=== PATIENT | female | born 1965 | race African-American/Black ===

== ENCOUNTER 2018-05-01 11:44 | Outpatient (CLI) | payer MEDICAID ==
--- NOTE | 2018-05-01 13:33 | CT ---
CT CHEST AND ABDOMEN AND PELVIS WITH CONTRAST: Date: 05/01/18 Multiple axial tomograms obtained through chest, abdomen, and pelvis with IV enhancement. Oral contra st was administered. INDICATION: Breast cancer. No prior exams for comparison. FINDINGS: CT CHEST: The lungs are well aerated. No infiltrate or effusion seen. There is a tiny, 5.0 mm, nodule in the ri ght mid lung which is noted along the fissure, best seen on coronal images. The mediastinum appears unremarkable. Review of soft tissues reveals a mass in the right posterolateral breast measuring up to 3.6 cm consi stent with the history of breast cancer. There is right axillary adenopathy. There are lymph nodes in the right axilla measuring over 2.0 cm. There are nonspecific right retropectoral lymph nodes which measure up to 1.0 cm. The osseous structures appear unremarkable. IMPRESSION: 1. Nonspecific 5.0 mm nodule in the right mid lung seen along the fissure, best noted on coronal antione ges. 2. Right breast mass and right axillary adenopathy with adenopathy seen in the retropectoral region on the right. CT ABDOMEN AND PELVIS: Liver, spleen, and pancreas are unremarkable. Adrenal glands normal. Kidneys unremarkable. Small bowel loops unremarkable. Colon unremarkable. Abdominal aorta normal caliber. No adenopathy identified. The uterus is enlarged and very heterogeneous. There are numerous focal areas of low and high attenua tion involving this very large uterus suggesting numerous myometrial fibroids. There are at least two fibroids from the fundus on coronal imaging measuring 5-6 cm diameter. The endometrium appears promi nent and should be sampled. IMPRESSION: 1. Enlarged, heterogeneous uterus, with evidence of numerous large myometrial fibroids. A thickened endometrium is noted. 2. CT abdomen and pelvis otherwise unremarkable. POS: [facility]
== END 2018-05-01 11:45 | disposition home or self-care (01) ==
LOC: SCSCT 11:44
PROVIDERS: ATTEND Internal Medicine Hematology & Oncology
DX: C50.919 Malignant neoplasm of unspecified site of unspecified female breast (principal); R91.1 Solitary pulmonary nodule; D25.9 Leiomyoma of uterus, unspecified; N85.2 Hypertrophy of uterus; R93.8 Abnormal findings on diagnostic imaging of other specified body structures
CPT/HCPCS: 71260; 74177

== ENCOUNTER 2018-05-01 12:04 | Outpatient (CLI) | payer MEDICAID ==
--- NOTE | 2018-05-01 13:59 | RAD ---
2 VIEWS CHEST: Date: 05/01/18 HISTORY: Preoperative chest radiograph. FINDINGS: PA and lateral views of chest obtained. The lungs are well aerated. No evidence of active intrathorac ic disease seen. No evidence of effusions, pneumonia, or pneumothorax seen. IMPRESSION: Normal 2 views chest. POS: [facility]
[2018-05-01 14:01] LABS: #Basophils 0.1 thou/uL (0.0-0.2); #Eosinphils 0.1 thou/uL (0.0-0.7); #Lymphocytes 1.8 thou/uL (1.20-3.40); #Monocytes 0.7 thou/uL (0.11-0.59); #Neutrophils 2.3 thou/uL (1.40-6.50); %Basophils 1.2 % (0.0-1.0); %Eosinophils 1.5 % (0.0-10.0); %Lymphocytes 37.1 % (21.0-51.0); %Monocytes 13.9 % (0.0-10.0); %Neutrophils 46.4 % (42.0-75.0); Hemoglobin 12.3 g/dL (12.0-16.0); Mean Corpuscular Hemoglobin 26.4 pg (27.0-31.0); Mean Platelet Volume 8.9 fL (7.4-10.4); Platelet Count 238 thou/uL (130-400); RBC Distribution Width 16.2 % (11.5-14.5); Red Blood Cell (RBC) Count 4.68 mill/uL (4.20-5.40)
[2018-05-01 14:14] LABS: Anion Gap 12 mmol/L (10-20); BUN (Urea Nitrogen) 11 mg/dL (9.8-20.1); Calc. Creatinine Clearance 0 mL/min (70-130); Calcium 9.2 mg/dL (7.8-10.44); Carbon Dioxide 25 mmol/L (22-29); Chloride 103 mmol/L (98-107); Estimated GFR-MDRD Greater than 90; Glucose 93 mg/dL (70-105); Potassium 3.7 mmol/L (3.5-5.1); Sodium 136 mmol/L (136-145)
--- NOTE | 2018-07-22 17:04 | EKG ---
Test Reason : Blood Pressure : / mmHG Vent. Rate : 067 BPM Atrial Rate : 067 BPM P-R Int : 160 ms QRS Dur : 088 ms QT Int : 398 ms P-R-T Axes : 020 034 027 degrees QTc Int : 420 ms Normal sinus rhythm Normal ECG No previous ECGs available Confirmed by PAMELA MEADOWS M.D. ([id number]) on 07/22/2018 5:03:38 PM Referred By: REMBERTO Confirmed By:PAMELA MEADOWS M.D.
== END 2018-05-01 12:05 | disposition home or self-care (01) ==
LOC: LABBT 12:04
PROVIDERS: ATTEND Specialist
DX: Z01.818 Encounter for other preprocedural examination (principal); C50.411 Malignant neoplasm of upper-outer quadrant of right female breast; Z17.0 Estrogen receptor positive status [ER+]
CPT/HCPCS: 71046; 80048; 85025; 93005; 93010

== ENCOUNTER → 2018-05-02 | Day surgery (SDC) | payer MEDICAID ==
[2018-05-01 13:01] VITALS: BMI 33.4
[~2018-05-02] MED LIST: Bupivacaine/Epinephrine 0.25% 30 ML VIAL ONE; CEFAZOLIN/Water 2 GM/20 ML SYRINGE ONE; Dexamethasone 20 MG/5 ML VIAL ONE; Fentanyl 100 MCG/2 ML VIAL ONE; Ketorolac Tromethamine 30 MG/ML VIAL ONE; Lidocaine 1% (PF) 30 ML VIAL ONE; Lidocaine 1% PF 5 ML VIAL ONE; Midazolam HCl 2 mg/2 ml Vial ONE; Ondansetron HCl/PF 4 MG/2 ML Vial ONE; PROPOFOL 200 MG/20 ML VIAL ONE
--- NOTE | 2018-05-02 11:11 | RAD ---
CHEST ONE VIEW: HISTORY: Mediport placement. FINDINGS: The cardiac silhouette is magnified by projection. The pulmonary vasculature are at the upper limits of normal. The mediastinum is midline. The tip of a left subclavian Mediport overlies the superior vena cava. No evidence of pneumothorax. IMPRESSION: Left subclavian Mediport is in good radiographic position. POS: [facility]
--- NOTE | 2018-05-03 16:57 | OP ---
DATE OF PROCEDURE: 05/02/2018 PREOPERATIVE DIAGNOSIS: Large advanced right breast cancer. POSTOPERATIVE DIAGNOSIS: Large advanced right breast cancer. OPERATION PERFORMED: Left subclavian standard size power compatible MediPort placement. SURGEON: You Smalls M.D. ANESTHESIA: Total intravenous anesthesia with local using 0.25% Marcaine with epinephrine. INDICATIONS: The patient is a 52-year-old black female. She had never had a mammogram before. She noted in November a mass in the upper outer right breast. She recently had imaging and biopsy obtained at the [facility] in [place]. This indicates infiltrating ductal carcinoma. She presents at this [facility] for MediPort placement for planned neoadjuvant chemotherapy. DESCRIPTION OF OPERATION: Informed consent was obtained. The patient was taken to the operating clinton m where total intravenous anesthesia was obtained with the patient in supine position. Left periclav icular area was prepped with ChloraPrep and draped in sterile fashion. Local anesthetic was infiltra sanket and a large gauge needle was passed under the clavicle in the subclavian vein. Guidewire was pas sed through the needle and fluoroscopically confirmed to enter the superior vena cava. Additional lo laila anesthetic was infiltrated and transverse incision was created based on needle insertion site. A subcutaneous pocket was dissected inferiorly. Introducer dilator was passed over the guidewire unde r fluoroscopic guidance. The guidewire and dilator were removed, and the catheter was passed through the introducer. The tip of the catheter was positioned at the atriocaval junction and the catheter was trimmed to the appropriate length and secured to the locking hub of the MediPort. The port was t hen placed in the subcutaneous pocket where it was secured to the pectoral fascia with 2 interrupted sutures of 3-0 Prolene. The incision was then closed in layers with 3-0 and 4-0 Monocryl. Additiona l local anesthetic was infiltrated. The port was cannulated with a Doherty needle and it aspirated blo od freely and was flushed with heparinized saline. Dermabond was placed externally on the skin incis ion. There were no complications. Blood loss was negligible. The patient tolerated the procedure w ell and was taken to recovery room in stable condition. FINDINGS: The patient had standard anatomy. I chose a standard size port and a power compatible por t was utilized. This was placed in the left subclavian vein uneventfully. There were no complicatio ns and essentially no blood loss. The patient tolerated the procedure well and was taken to recovery room in stable condition. Fluoroscopy was used throughout the procedure showing good position of th e port and catheter.
== END ==
LOC: SDC 07:00
PROVIDERS: ATTEND Specialist
PROC: 0JH63WZ Insertion of Totally Implantable Vascular Access Device into Chest Subcutaneous Tissue and Fascia, Percutaneous Approach (ICD-10-PCS; principal; 2018-05-02)
DX: C50.411 Malignant neoplasm of upper-outer quadrant of right female breast (principal); C77.3 Secondary and unspecified malignant neoplasm of axilla and upper limb lymph nodes; I10 Essential (primary) hypertension; F17.210 Nicotine dependence, cigarettes, uncomplicated; Z17.0 Estrogen receptor positive status [ER+]; Z79.899 Other long term (current) drug therapy
CPT/HCPCS: 71045; 71046; 71260; 74177; 80048; 85025; 93005; 93010; C1788; J0131; J1100; J1642; J1885; J2001; J2250; J2405; J2704; J3010

== ENCOUNTER 2018-07-09 11:36 | Day surgery (SDC) | payer OTHER ==
[2018-07-09] MEDS ORDERED: SODIUM CHLORIDE 0.9% SLOW IVP SCH (12:30)
[2018-07-09] MEDS ORDERED: DOXORUBICIN SLOW IVP SCH ×2 (12:30→13:00)
[2018-07-09] MEDS ORDERED: Dexamethasone 4 mg/ml Vial SLOW IVP SCH (12:30)
[2018-07-09] MEDS ORDERED: PALONOSETRON HCL 0.05 MG/ML 5 ML VIAL IVP SCH (12:30)
[2018-07-09 12:37] VITALS: BP 135/91; TEMP 98.1
[2018-07-09] MEDS ORDERED: CYCLOPHOSPHAMIDE IVPB SCH (13:00)
[2018-07-09] MEDS ORDERED: ADMIXTURE FEE SLOW IVP SCH (13:00)
[2018-07-09] MEDS ORDERED: SODIUM CHLORIDE 0.9% IVPB SCH (13:00)
[2018-07-09] MEDS ORDERED: Pegfilgrastim Onpro 6 MG/0.6 ML SQ SCH (14:00)
== END 2018-07-09 16:00 | disposition home or self-care (01) ==
LOC: ONC/OP 11:36
PROVIDERS: ATTEND Internal Medicine Hematology & Oncology
DX: Z51.11 Encounter for antineoplastic chemotherapy (principal); C50.411 Malignant neoplasm of upper-outer quadrant of right female breast; C77.3 Secondary and unspecified malignant neoplasm of axilla and upper limb lymph nodes; I10 Essential (primary) hypertension; Z17.0 Estrogen receptor positive status [ER+]; Z87.891 Personal history of nicotine dependence; Z79.899 Other long term (current) drug therapy
CPT/HCPCS: 36415; 80053; 82248; 83615; 84100; 84550; 96367; 96375; 96377; 96413; 96417; J1100; J1453; J2469; J2505; J7050; J9000; J9070

== ENCOUNTER 2018-07-18 10:44 | Outpatient (CLI) | payer OTHER ==
--- NOTE | 2018-07-18 12:10 | RAD ---
CHEST TWO VIEWS: HISTORY: Upper respiratory infection. COMPARISON: Radiograph from 05/02/2018. FINDINGS: Port-A-Cath is in a similar, good position. No confluent air space consolidation, pneumothorax, or e ffusion. Right upper quadrant surgical clips. IMPRESSION: Normal examination. POS: [facility]
== END 2018-07-18 10:45 | disposition home or self-care (01) ==
LOC: RAD-FRANK 10:44
PROVIDERS: ATTEND Nurse Practitioner Family
DX: J06.9 Acute upper respiratory infection, unspecified (principal)
CPT/HCPCS: 71046

== ENCOUNTER 2018-07-23 10:15 | Day surgery (SDC) | payer OTHER ==
[2018-07-23] MEDS ORDERED: Dexamethasone 10 MG/ML VIAL SLOW IVP SCH (10:45)
[2018-07-23] MEDS ORDERED: Pegfilgrastim Onpro 6 MG/0.6 ML SQ SCH (10:45)
[2018-07-23] MEDS ORDERED: PALONOSETRON HCL 0.05 MG/ML 5 ML VIAL IVP SCH (10:45)
[2018-07-23] MEDS ORDERED: DOXORUBICIN IVPB SCH (10:45)
[2018-07-23] MEDS ORDERED: SODIUM CHLORIDE 0.9% IVPB SCH ×2 (10:45→11:00)
[2018-07-23] MEDS ORDERED: Sodium Chloride 0.9% 30 ML ONE (10:53)
[2018-07-23] MEDS ORDERED: CYCLOPHOSPHAMIDE IVPB SCH (11:00)
[2018-07-23 12:04] VITALS: BP 143/82; TEMP 98.3
== END 2018-07-23 16:08 | disposition home or self-care (01) ==
LOC: ONC/OP 10:15
PROVIDERS: ATTEND Internal Medicine Hematology & Oncology
DX: Z51.11 Encounter for antineoplastic chemotherapy (principal); C50.411 Malignant neoplasm of upper-outer quadrant of right female breast; C77.3 Secondary and unspecified malignant neoplasm of axilla and upper limb lymph nodes; Z17.0 Estrogen receptor positive status [ER+]; Z87.891 Personal history of nicotine dependence; Z79.899 Other long term (current) drug therapy
CPT/HCPCS: 36415; 80053; 82248; 83615; 84100; 84550; 96367; 96375; 96377; 96413; 96417; J1100; J1453; J1642; J2469; J2505; J7050; J9000; J9070

== ENCOUNTER 2018-08-06 10:03 | Day surgery (SDC) | payer OTHER ==
[2018-08-06] MEDS ORDERED: Sodium Chloride 0.9% 40 ML ONE (10:24)
[2018-08-06 10:29] VITALS: BP 140/88; TEMP 98
[2018-08-06] MEDS ORDERED: PALONOSETRON HCL 0.05 MG/ML 5 ML VIAL IVP SCH (10:45)
[2018-08-06] MEDS ORDERED: SODIUM CHLORIDE 0.9% IVPB SCH ×2 (11:00)
[2018-08-06] MEDS ORDERED: Pegfilgrastim Onpro 6 MG/0.6 ML SQ SCH (11:00)
[2018-08-06] MEDS ORDERED: CYCLOPHOSPHAMIDE IVPB SCH (11:00)
[2018-08-06] MEDS ORDERED: DOXORUBICIN IVPB SCH (11:00)
[2018-08-06] MEDS ORDERED: Dexamethasone 10 MG/ML VIAL SLOW IVP SCH (11:00)
== END 2018-08-06 13:57 | disposition home or self-care (01) ==
LOC: ONC/OP 10:03
PROVIDERS: ATTEND Internal Medicine Hematology & Oncology
DX: Z51.11 Encounter for antineoplastic chemotherapy (principal); C50.411 Malignant neoplasm of upper-outer quadrant of right female breast; I10 Essential (primary) hypertension; Z87.891 Personal history of nicotine dependence; Z79.899 Other long term (current) drug therapy
CPT/HCPCS: 36415; 80053; 82248; 83615; 84100; 84550; 96367; 96375; 96413; 96417; J1100; J1453; J1642; J2469; J7050; J9000; J9070

== ENCOUNTER 2018-08-20 12:08 | Day surgery (SDC) | payer OTHER ==
[2018-08-20] MEDS ORDERED: Sodium Chloride 0.9% 40 ML ONE (12:20)
[2018-08-20] MEDS ORDERED: PALONOSETRON HCL 0.05 MG/ML 5 ML VIAL IVP SCH (12:45)
[2018-08-20] MEDS ORDERED: CYCLOPHOSPHAMIDE IVPB SCH (12:45)
[2018-08-20] MEDS ORDERED: PRE FILLED IVPB SCH (12:45)
[2018-08-20] MEDS ORDERED: DOXORUBICIN IVPB SCH ×2 (12:45→13:45)
[2018-08-20] MEDS ORDERED: Pegfilgrastim Onpro 6 MG/0.6 ML SQ SCH (12:45)
[2018-08-20] MEDS ORDERED: SODIUM CHLORIDE 0.9% IVPB SCH ×2 (12:45→13:45)
[2018-08-20] MEDS ORDERED: Dexamethasone 10 MG/ML VIAL SLOW IVP SCH (12:45)
[2018-08-20 12:52] VITALS: BP 137/96; TEMP 98
== END 2018-08-20 16:13 | disposition home or self-care (01) ==
LOC: ONC/OP 12:08
PROVIDERS: ATTEND Internal Medicine
DX: Z51.11 Encounter for antineoplastic chemotherapy (principal); C50.411 Malignant neoplasm of upper-outer quadrant of right female breast
CPT/HCPCS: 36415; 80053; 82248; 83615; 84100; 84550; 96367; 96375; 96377; 96413; 96417; J1100; J1453; J1642; J2469; J2505; J7050; J9000; J9070

== ENCOUNTER 2018-09-03 13:47 | Day surgery (SDC) | payer OTHER ==
[2018-09-03] MEDS ORDERED: Dexamethasone 10 MG/ML VIAL SLOW IVP SCH (14:15)
[2018-09-03] MEDS ORDERED: PACLitaxel 160 MG in Sodium Chloride 0.9% 250 ML 250 ML IVPB SCH (14:15)
[2018-09-03 16:32] VITALS: BP 157/86; TEMP 98.4
== END 2018-09-03 16:37 | disposition home or self-care (01) ==
LOC: ONC/OP 13:47
PROVIDERS: ATTEND Internal Medicine Hematology & Oncology
DX: Z51.11 Encounter for antineoplastic chemotherapy (principal); C50.411 Malignant neoplasm of upper-outer quadrant of right female breast; I10 Essential (primary) hypertension; Z79.899 Other long term (current) drug therapy
CPT/HCPCS: 96375; 96413; J1100; J7050; J9267

== ENCOUNTER 2018-09-10 12:27 | Day surgery (SDC) | payer OTHER ==
[2018-09-10] MEDS ORDERED: Dexamethasone 10 MG/ML VIAL SLOW IVP SCH (12:45)
[2018-09-10] MEDS ORDERED: PACLitaxel 160 MG in Sodium Chloride 0.9% 250 ML 250 ML IVPB SCH (12:45)
[2018-09-10] MEDS ORDERED: Sodium Chloride 0.9% 30 ML ONE (13:02)
== END 2018-09-10 15:19 | disposition home or self-care (01) ==
LOC: ONC/OP 12:27
PROVIDERS: ATTEND Internal Medicine Hematology & Oncology
DX: Z51.11 Encounter for antineoplastic chemotherapy (principal); C50.411 Malignant neoplasm of upper-outer quadrant of right female breast; I10 Essential (primary) hypertension; Z87.891 Personal history of nicotine dependence; Z17.0 Estrogen receptor positive status [ER+]; Z79.899 Other long term (current) drug therapy
CPT/HCPCS: 96375; 96413; J1100; J1642; J7050; J9267

== ENCOUNTER 2018-09-18 14:51 | Day surgery (SDC) | payer OTHER ==
[2018-09-18] MEDS ORDERED: Dexamethasone 10 MG in Sodium Chloride 0.9% 50 ML IVPB SCH (15:00)
[2018-09-18] MEDS ORDERED: PACLitaxel 160 MG in Sodium Chloride 0.9% 250 ML 250 ML IVPB SCH (15:15)
[2018-09-18 15:55] VITALS: BP 182/92; TEMP 97.8
[2018-09-18] MEDS ORDERED: Sodium Chloride 0.9% 20 ML ONE (16:38)
== END 2018-09-18 17:02 | disposition home or self-care (01) ==
LOC: ONC/OP 14:51
PROVIDERS: ATTEND Internal Medicine Hematology & Oncology
DX: Z51.11 Encounter for antineoplastic chemotherapy (principal); C50.411 Malignant neoplasm of upper-outer quadrant of right female breast; C77.3 Secondary and unspecified malignant neoplasm of axilla and upper limb lymph nodes; I10 Essential (primary) hypertension; Z87.891 Personal history of nicotine dependence; Z17.0 Estrogen receptor positive status [ER+]; Z79.899 Other long term (current) drug therapy
CPT/HCPCS: 96375; 96413; J1100; J1642; J7050; J9267

== ENCOUNTER 2018-09-25 14:03 | Day surgery (SDC) | payer OTHER ==
[2018-09-25] MEDS ORDERED: Dexamethasone 4 mg/ml Vial SLOW IVP SCH (14:15)
[2018-09-25] MEDS ORDERED: PACLitaxel 160 MG in Sodium Chloride 0.9% 250 ML 250 ML IVPB SCH (14:15)
[2018-09-25] MEDS ORDERED: Sodium Chloride 0.9% 20 ML ONE (14:17)
[2018-09-25 14:26] VITALS: BP 179/90; TEMP 98.5
== END 2018-09-25 16:01 | disposition home or self-care (01) ==
LOC: ONC/OP 14:03
PROVIDERS: ATTEND Internal Medicine Hematology & Oncology
DX: Z51.11 Encounter for antineoplastic chemotherapy (principal); C50.411 Malignant neoplasm of upper-outer quadrant of right female breast; C77.3 Secondary and unspecified malignant neoplasm of axilla and upper limb lymph nodes; I10 Essential (primary) hypertension; Z87.891 Personal history of nicotine dependence; Z17.0 Estrogen receptor positive status [ER+]; Z79.899 Other long term (current) drug therapy
CPT/HCPCS: 96375; 96413; J1100; J1642; J7050; J9267

== ENCOUNTER 2018-10-01 11:39 | Day surgery (SDC) | payer OTHER ==
[2018-10-01] MEDS ORDERED: Dexamethasone 4 mg/ml Vial SLOW IVP SCH (12:00)
[2018-10-01] MEDS ORDERED: PACLitaxel 160 MG in Sodium Chloride 0.9% 250 ML 250 ML IVPB SCH (12:30)
[2018-10-01 12:40] VITALS: BP 169/94; TEMP 97.8
[2018-10-01] MEDS ORDERED: Sodium Chloride 0.9% 30 ML ONE (15:30)
== END 2018-10-01 15:44 | disposition home or self-care (01) ==
LOC: ONC/OP 11:39
PROVIDERS: ATTEND Internal Medicine Hematology & Oncology
DX: Z51.11 Encounter for antineoplastic chemotherapy (principal); C50.411 Malignant neoplasm of upper-outer quadrant of right female breast
CPT/HCPCS: 80053; 82248; 83615; 84100; 84550; 96375; 96413; J1100; J1642; J7050; J9267

== ENCOUNTER 2018-10-08 11:12 | Day surgery (SDC) | payer OTHER ==
[2018-10-08] MEDS ORDERED: Sodium Chloride 0.9% 20 ML ONE (11:24)
[2018-10-08] MEDS ORDERED: PACLitaxel 160 MG in Sodium Chloride 0.9% 250 ML 250 ML IVPB SCH (11:30)
[2018-10-08] MEDS ORDERED: Dexamethasone 4 mg/ml Vial SLOW IVP SCH (11:30)
[2018-10-08 12:23] VITALS: BP 154/83; TEMP 98.7
== END 2018-10-08 13:22 | disposition home or self-care (01) ==
LOC: ONC/OP 11:12
PROVIDERS: ATTEND Internal Medicine
DX: Z51.11 Encounter for antineoplastic chemotherapy (principal); C50.411 Malignant neoplasm of upper-outer quadrant of right female breast; I10 Essential (primary) hypertension; Z17.0 Estrogen receptor positive status [ER+]; Z87.891 Personal history of nicotine dependence; Z79.899 Other long term (current) drug therapy
CPT/HCPCS: 96375; 96413; J1100; J1642; J7050; J9267

== ENCOUNTER 2018-10-15 10:46 | Day surgery (SDC) | payer OTHER ==
[2018-10-15] MEDS ORDERED: Dexamethasone 4 mg/ml Vial SLOW IVP SCH (11:00)
[2018-10-15] MEDS ORDERED: PACLitaxel 160 MG in Sodium Chloride 0.9% 250 ML 250 ML IVPB SCH (11:00)
[2018-10-15] MEDS ORDERED: Sodium Chloride 0.9% 30 ML ONE (11:04)
== END 2018-10-15 13:06 | disposition home or self-care (01) ==
LOC: ONC/OP 10:46
PROVIDERS: ATTEND Internal Medicine Hematology & Oncology
DX: Z51.11 Encounter for antineoplastic chemotherapy (principal); C50.411 Malignant neoplasm of upper-outer quadrant of right female breast; I10 Essential (primary) hypertension; Z98.51 Tubal ligation status; Z90.49 Acquired absence of other specified parts of digestive tract; Z79.899 Other long term (current) drug therapy; Z98.890 Other specified postprocedural states
CPT/HCPCS: 96375; 96413; J1100; J7050; J9267

== ENCOUNTER 2018-10-22 10:54 | Day surgery (SDC) | payer OTHER ==
[2018-10-22] MEDS ORDERED: Sodium Chloride 0.9% 20 ML ONE (11:01)
[2018-10-22] MEDS ORDERED: PACLitaxel 160 MG in Sodium Chloride 0.9% 250 ML 250 ML IVPB SCH (11:15)
[2018-10-22] MEDS ORDERED: Dexamethasone 4 mg/ml Vial SLOW IVP SCH (11:15)
[2018-10-22 12:20] VITALS: BP 137/81; TEMP 98.4
== END 2018-10-22 18:35 | disposition home or self-care (01) ==
LOC: ONC/OP 10:54
PROVIDERS: ATTEND Internal Medicine Hematology & Oncology
DX: Z51.11 Encounter for antineoplastic chemotherapy (principal); C50.411 Malignant neoplasm of upper-outer quadrant of right female breast; I10 Essential (primary) hypertension; Z98.51 Tubal ligation status; Z90.49 Acquired absence of other specified parts of digestive tract; Z79.899 Other long term (current) drug therapy; Z98.890 Other specified postprocedural states
CPT/HCPCS: 96375; 96413; J1100; J1642; J7050; J9267

== ENCOUNTER 2018-10-29 14:14 | Day surgery (SDC) | payer OTHER ==
[2018-10-29] MEDS ORDERED: Sodium Chloride 0.9% 20 ML ONE (14:17)
[2018-10-29 14:29] VITALS: BP 170/87; TEMP 98.5
[2018-10-29] MEDS ORDERED: Dexamethasone 4 mg/ml Vial SLOW IVP SCH (14:30)
[2018-10-29] MEDS ORDERED: PACLitaxel 160 MG in Sodium Chloride 0.9% 250 ML 250 ML IVPB SCH (15:00)
== END 2018-10-29 17:26 | disposition home or self-care (01) ==
LOC: ONC/OP 14:14
PROVIDERS: ATTEND Internal Medicine Hematology & Oncology
DX: Z51.11 Encounter for antineoplastic chemotherapy (principal); C50.411 Malignant neoplasm of upper-outer quadrant of right female breast; I10 Essential (primary) hypertension; Z98.51 Tubal ligation status; Z90.49 Acquired absence of other specified parts of digestive tract; Z79.899 Other long term (current) drug therapy; Z87.891 Personal history of nicotine dependence
CPT/HCPCS: 36415; 80053; 82248; 83615; 84100; 84550; 96375; 96413; J1100; J1642; J7050; J9267

== ENCOUNTER 2018-11-05 10:53 | Day surgery (SDC) | payer OTHER ==
[~2018-11-05 10:53] MED LIST changes: -Bupivacaine/Epinephrine 0.25% 30 ML VIAL ONE; -CEFAZOLIN/Water 2 GM/20 ML SYRINGE ONE; -Dexamethasone 20 MG/5 ML VIAL ONE; +Dexamethasone 4 mg/ml Vial SLOW IVP SCH; -Fentanyl 100 MCG/2 ML VIAL ONE; -Ketorolac Tromethamine 30 MG/ML VIAL ONE; -Lidocaine 1% (PF) 30 ML VIAL ONE; -Lidocaine 1% PF 5 ML VIAL ONE; -Midazolam HCl 2 mg/2 ml Vial ONE; -Ondansetron HCl/PF 4 MG/2 ML Vial ONE; +PACLitaxel 160 MG in Sodium Chloride 0.9% 250 ML 250 ML IVPB SCH; -PROPOFOL 200 MG/20 ML VIAL ONE
[2018-11-05] MEDS ORDERED: Sodium Chloride 0.9% 30 ML ONE (11:17)
[2018-11-05 11:48] VITALS: BP 137/83; TEMP 97.8
== END 2018-11-05 12:54 | disposition home or self-care (01) ==
LOC: ONC/OP 10:53
PROVIDERS: ATTEND Internal Medicine Hematology & Oncology
DX: Z51.11 Encounter for antineoplastic chemotherapy (principal); C50.411 Malignant neoplasm of upper-outer quadrant of right female breast; I10 Essential (primary) hypertension; Z98.51 Tubal ligation status; Z90.49 Acquired absence of other specified parts of digestive tract; Z87.891 Personal history of nicotine dependence; Z98.890 Other specified postprocedural states
CPT/HCPCS: 96375; 96413; J1100; J1642; J7050; J9267

== ENCOUNTER 2018-11-12 00:05 | Day surgery (SDC) | payer OTHER ==
[2018-11-12] MEDS ORDERED: PACLitaxel 160 MG in Sodium Chloride 0.9% 250 ML 250 ML IVPB SCH (01:30)
[2018-11-12] MEDS ORDERED: Dexamethasone 4 mg/ml Vial SLOW IVP SCH (01:30)
[2018-11-12] MEDS ORDERED: Sodium Chloride 0.9% 20 ML ONE (10:44)
[2018-11-12 10:52] VITALS: BP 181/93; TEMP 98.5
== END 2018-11-12 12:12 | disposition home or self-care (01) ==
LOC: ONC/OP 00:05
PROVIDERS: ATTEND Internal Medicine Hematology & Oncology
DX: Z51.11 Encounter for antineoplastic chemotherapy (principal); C50.411 Malignant neoplasm of upper-outer quadrant of right female breast; I10 Essential (primary) hypertension; Z98.51 Tubal ligation status; Z90.49 Acquired absence of other specified parts of digestive tract; Z87.891 Personal history of nicotine dependence; Z79.899 Other long term (current) drug therapy; Z98.890 Other specified postprocedural states
CPT/HCPCS: 96375; 96413; J1100; J1642; J7050; J9267

== ENCOUNTER 2018-11-19 11:32 | Day surgery (SDC) | payer OTHER ==
[~2018-11-19 11:32] MED LIST changes: +Dexamethasone 4 MG in Sodium Chloride 0.9% 50 ML IVPB SCH
[2018-11-19] MEDS ORDERED: Sodium Chloride 0.9% 20 ML ONE (11:36)
== END 2018-11-19 13:53 | disposition home or self-care (01) ==
LOC: ONC/OP 11:32
PROVIDERS: ATTEND Internal Medicine Hematology & Oncology
DX: Z51.11 Encounter for antineoplastic chemotherapy (principal); C50.411 Malignant neoplasm of upper-outer quadrant of right female breast; I10 Essential (primary) hypertension; Z98.51 Tubal ligation status; Z90.49 Acquired absence of other specified parts of digestive tract; Z79.899 Other long term (current) drug therapy; Z98.890 Other specified postprocedural states
CPT/HCPCS: 96375; 96413; J1100; J1642; J7050; J9267

== ENCOUNTER 2018-12-13 00:55 | Outpatient (CLI) | payer OTHER ==
[2018-12-13 12:53] LABS: Mean Corpuscular HGB CONC 33.1 g/dL (32.0-36.0); Mean Corpuscular Hemoglobin 28.7 pg (27.0-31.0); Mean Corpuscular Volume 86.6 fL (78.0-98.0); Mean Platelet Volume 9.1 fL (7.4-10.4); Platelet Count 253 thou/uL (130-400); RBC Distribution Width 14.7 % (11.5-14.5); Red Blood Cell (RBC) Count 4.54 mill/uL (4.20-5.40); White Blood Cell (WBC) Count 4.3 thou/uL (4.8-10.8)
[2018-12-13 13:11] LABS: Anion Gap 12 mmol/L (10-20); BUN (Urea Nitrogen) 12 mg/dL (9.8-20.1); Calc. Creatinine Clearance 0 mL/min (70-130); Calcium 9.5 mg/dL (7.8-10.44); Carbon Dioxide 26 mmol/L (22-29); Chloride 107 mmol/L (98-107); Estimated GFR-MDRD Greater than 90; Glucose 97 mg/dL (70-105); Potassium 3.8 mmol/L (3.5-5.1); Sodium 141 mmol/L (136-145)
[2018-12-13 13:23] LABS: Band 2 % (5-11); Lymphocytes 40 % (21-51); MDiff Complete? YES; Metamyelocyte 1 % (0-0); Monocytes 10 % (0-10); Neutrophil 38 % (42-75); Platelet Morphology Comment Appears Adequate; RBC Morphology Normal; Reactive Lymphocytes 7 % (0-10)
--- NOTE | 2018-12-16 17:37 | EKG ---
Test Reason : Blood Pressure : / mmHG Vent. Rate : 088 BPM Atrial Rate : 088 BPM P-R Int : 148 ms QRS Dur : 082 ms QT Int : 376 ms P-R-T Axes : 071 061 052 degrees QTc Int : 454 ms Normal sinus rhythm Cannot rule out Anterior infarct (cited on or before 13-DEC-2018) Abnormal ECG When compared with ECG of 01-MAY-2018 13:22, No significant change was found Confirmed by DR. Tien MEDRANO ([id number]) on 12/16/2018 5:37:05 PM Referred By: HARRY Confirmed By:DR. Tien MEDRANO
== END 2018-12-13 00:56 | disposition home or self-care (01) ==
LOC: LABBT 00:55
PROVIDERS: ATTEND Specialist
DX: Z01.818 Encounter for other preprocedural examination (principal); C50.411 Malignant neoplasm of upper-outer quadrant of right female breast
CPT/HCPCS: 80048; 85025; 93005; 93010

== ENCOUNTER 2018-12-19 05:54 | Inpatient (IN) | payer OTHER ==
[2018-12-13 11:36] VITALS: BMI 34.4
[2018-12-19] MEDS ORDERED: Ketorolac Tromethamine 30 MG/ML VIAL ONE (06:27)
[2018-12-19] MEDS ORDERED: Sodium Chloride 0.9% 10 ML ONE (06:36)
[2018-12-19] MEDS ORDERED: Midazolam HCl 2 mg/2 ml Vial ONE (07:28)
[2018-12-19] MEDS ORDERED: Fentanyl 100 MCG/2 ML VIAL ONE ×3 (07:28→10:47)
[2018-12-19] MEDS ORDERED: PHENYLEPHRINE-NS 100 MCG/ML 10 ML SYRINGE ONE (10:01)
[2018-12-19] MEDS ORDERED: Ondansetron PF 4 MG/2 ML Vial ONE (10:01)
[2018-12-19] MEDS ORDERED: Dexamethasone 20 MG/5 ML VIAL ONE (10:01)
[2018-12-19] MEDS ORDERED: PROPOFOL 200 MG/20 ML VIAL ONE (10:01)
[2018-12-19] MEDS ORDERED: Lidocaine 1% PF 5 ML VIAL ONE (10:01)
[2018-12-19] MEDS ORDERED: Dextrose 50% Abboject 50 ML SYRINGE SLOW IVP PRN (11:26)
[2018-12-19] MEDS ORDERED: Dextrose 5% in Water 1,000 ML IV PRN (11:26)
[2018-12-19] MEDS ORDERED: Promethazine HCl 25 MG/ML VIAL IM PRN (11:26)
[2018-12-19] MEDS ORDERED: hydrALAZINE 20 MG/ML VIAL SLOW IVP PRN (11:26)
[2018-12-19] MEDS ORDERED: Acetaminophen 325 MG TAB PO PRN (11:26)
[2018-12-19] MEDS ORDERED: HYDROcodone/Acetaminophen 7.5/325 mg Tablet PO PRN ×2 (11:26)
[2018-12-19] MEDS ORDERED: Morphine 2 MG/ML SYRINGE SLOW IVP PRN (11:54)
[2018-12-19] MEDS: Ondansetron PF 4 MG/2 ML Vial IVP PRN ×2 (12:08→20:36)
[2018-12-19] MEDS: D5 1/2 NS w/20 mEq KCL 1,000 ML IV SCH ×2 (12:38→20:34)
[2018-12-19] MEDS: Morphine 4 MG/ML VIAL SLOW IVP PRN (18:01)
[2018-12-19] MEDS: Docusate 100 MG CAP PO SCH (20:08)
[2018-12-19] MEDS: Famotidine 20 MG TAB PO SCH (20:08)
[2018-12-20] MEDS: Morphine 4 MG/ML VIAL SLOW IVP PRN ×2 (03:50→09:37)
[2018-12-20 05:56] LABS: Band 3 % (5-11); Hemoglobin 8.5 g/dL (12.0-16.0); Lymphocytes 23 % (21-51); MDiff Complete? YES; Mean Corpuscular HGB CONC 33.2 g/dL (32.0-36.0); Mean Corpuscular Hemoglobin 29.3 pg (27.0-31.0); Mean Corpuscular Volume 88.2 fL (78.0-98.0); Monocytes 15 % (0-10); Neutrophil 59 % (42-75); Platelet Count 191 thou/uL (130-400); RBC Distribution Width 14.5 % (11.5-14.5); Red Blood Cell (RBC) Count 2.91 mill/uL (4.20-5.40)
[2018-12-20] MEDS: Famotidine 20 MG TAB PO SCH (09:42)
[2018-12-20] MEDS: Docusate 100 MG CAP PO SCH (09:42)
[2018-12-20 14:53] LABS: Eosinophils 1 % (0-10); Hemoglobin 8.8 g/dL (12.0-16.0); Lymphocytes 15 % (21-51); MDiff Complete? YES; Mean Corpuscular HGB CONC 32.7 g/dL (32.0-36.0); Mean Corpuscular Hemoglobin 28.7 pg (27.0-31.0); Mean Platelet Volume 8.6 fL (7.4-10.4); Monocytes 8 % (0-10); Neutrophil 75 % (42-75); Platelet Count 196 thou/uL (130-400); Platelet Morphology Comment Appears Adequate; RBC Distribution Width 14.5 % (11.5-14.5); Reactive Lymphocytes 1 % (0-10); Red Blood Cell (RBC) Count 3.05 mill/uL (4.20-5.40); White Blood Cell (WBC) Count 4.4 thou/uL (4.8-10.8)
[2018-12-20 16:13] VITALS: BP 125/87; TEMP 98.4
--- NOTE | 2018-12-21 16:30 | OP ---
DATE OF PROCEDURE: 12/19/2018 PREOPERATIVE DIAGNOSIS: Large right breast cancer with disease metastatic to lymph nodes. POSTOPERATIVE DIAGNOSIS: Large right breast cancer with disease metastatic to lymph nodes. PROCEDURE PERFORMED: Right modified radical mastectomy. ANESTHESIA: General endotracheal. INDICATIONS: The patient is a 53-year-old black female. She had presented several months previously with a large neglected breast cancer in the upper outer quadrant. This was metastatic to lymph nodes and this was biopsy-proven. She had a MediPort placed and underwent neoadjuvant chemotherapy. At this point, she is taken to the operating room for definitive surgery. Although she appears to have had a good response to her chemotherapy, she still has at least one sonographically visible enlarged lymph node and the mass in the upper outer breast is still too large to consider a lumpectomy. I therefore recommended modified radical mastectomy. DESCRIPTION OF OPERATION: Informed consent was obtained, and the patient was taken to the operating, where general endotracheal anesthesia was obtained and placed in supine position. Right breast and axilla were prepped with ChloraPrep and draped in sterile fashion. An elliptical incision was created across the right chest wall and breast to include the nipple-areolar complex and extended over laterally towards the axilla. Dissection was carried through the skin and subcutaneous tissue. Flaps were raised superiorly, medially, and inferiorly, leaving adequate subcutaneous tissue to maintain flap viability, but removing all breast tissue. The dissection was carried down to the chest wall. Hemostasis was maintained with electrocautery. The plasma blade was used for all dissection. The breast was then swept off the chest wall in a [id number] fashion. At the lateral aspect of the chest, the breast was dissected off the lateral aspect of the pectoralis. Dissection was then carried up into the axilla. I was able to identify the axillary vein. I then dissected and identified the long thoracic nerve and the thoracodorsal dorsal nerve. These were both preserved throughout the case. All fatty and lymphatic tissue were swept inferiorly out of the axilla in continuity with the tail of the breast. Lymphatics were divided between hemoclips. Hemostasis was maintained with PlasmaBlade cautery. The specimen was removed intact and passed off the field as a surgical specimen. The wound was thoroughly irrigated with sterile water. Further hemostasis was obtained with the plasma blade. I then carefully tailored the skin flaps to allow appropriate snug closure across the chest wall. Due to the large size of her breast and her relative obesity, there was extensive redundant tissue. I created a dog-ear flap extending superiorly to the medial aspect of the incision. I removed additional redundant tissue and created a dog-ear reconstruction extending inferiorly on the lateral aspect near the axilla. Two separate #19 round fluted drains were placed within the wound and brought out laterally and inferiorly. The medial drain extended across the chest wall and the lateral drain extended up into the axilla. Each drain was secured with 3-0 nylon suture. The skin incision was closed with a running 3-0 Vicryl suture and skin marianne. Dressing was applied using Xeroform gauze, fluff gauze, and a Marybel wrap. There were no complications. Blood loss was minimal. The patient tolerated the procedure well and was taken to the recovery room in stable condition. Job ID: [id number]
--- NOTE | 2018-12-23 08:36 | DIS ---
DATE OF ADMISSION: 12/19/2018 DATE OF DISCHARGE: 12/20/2018 ADMISSION DIAGNOSIS: Right breast cancer. DISCHARGE DIAGNOSIS: Right breast cancer. OPERATION PERFORMED: Right modified radical mastectomy. ADMISSION HISTORY: The patient is a 53-year-old female, who had presented several months previously with a neglected right breast cancer. It was large and metastatic to right axillary lymph nodes. She had a MediPort placed and has undergone neoadjuvant chemotherapy. She presents at this time for definitive right breast surgery. HOSPITAL COURSE: She presented on the day of admission and underwent uncomplicated and uneventful right modified radical mastectomy. The day following the surgery, she was tolerating her diet. Vital signs were stable. Laboratory studies were unremarkable. She had a circumferential wrap still in place across her right chest wall. She had two drains that were draining appropriate amounts of fluid. She was felt to be stable for discharge. She was discharged home with a prescription for tramadol and asked to follow up with myself in 1 week, at which point, the wrap will be taken down and her drains will be evaluated. Job ID: [id number]
== END 2018-12-20 18:24 | disposition home or self-care (01) | DRG 582 ==
LOC: SDC 05:54 → SURG A 11:28
PROVIDERS: ADMIT Specialist; ATTEND Specialist
PROC: 0HTT0ZZ Resection of Right Breast, Open Approach (ICD-10-PCS; principal; 2018-12-19)
PROC: 07T50ZZ Resection of Right Axillary Lymphatic, Open Approach (ICD-10-PCS; 2018-12-19)
DX: C50.411 Malignant neoplasm of upper-outer quadrant of right female breast (principal); C77.3 Secondary and unspecified malignant neoplasm of axilla and upper limb lymph nodes; Z17.0 Estrogen receptor positive status [ER+]; Z92.21 Personal history of antineoplastic chemotherapy; I10 Essential (primary) hypertension; F17.210 Nicotine dependence, cigarettes, uncomplicated; Z79.899 Other long term (current) drug therapy; E66.9 Obesity, unspecified; Z68.34 Body mass index [BMI] 34.0-34.9, adult
CPT/HCPCS: 36415; 85025; 88309; J0131; J1100; J1642; J1885; J2001; J2250; J2270; J2405; J2704; J3010; J3490

== ENCOUNTER 2019-02-19 16:23 | Outpatient (CLI) | payer OTHER | END 2019-02-19 16:24 | disposition home or self-care (01) | LOC: WCC 16:23 | PROVIDERS: ATTEND Family Medicine | DX: T81.89XD Other complications of procedures, not elsewhere classified, subsequent encounter (principal) | CPT/HCPCS: 99211; G0463 ==

== ENCOUNTER 2019-02-25 15:08 | Outpatient (CLI) | payer OTHER ==
[~2019-02-25 15:08] MED LIST changes: -Dexamethasone 4 MG in Sodium Chloride 0.9% 50 ML IVPB SCH; -Dexamethasone 4 mg/ml Vial SLOW IVP SCH; -PACLitaxel 160 MG in Sodium Chloride 0.9% 250 ML 250 ML IVPB SCH; +Sodium Chloride 0.9% 15 ML NEB ONE
== END 2019-02-25 15:09 | disposition home or self-care (01) ==
LOC: WCC 15:08
PROVIDERS: ATTEND Family Medicine
DX: T81.89XD Other complications of procedures, not elsewhere classified, subsequent encounter (principal)
CPT/HCPCS: 97605; A4218

== ENCOUNTER 2019-02-27 16:21 | Outpatient (CLI) | payer OTHER | END 2019-02-27 16:22 | disposition home or self-care (01) | LOC: WCC 16:21 | PROVIDERS: ATTEND Family Medicine | DX: T81.89XD Other complications of procedures, not elsewhere classified, subsequent encounter (principal) | CPT/HCPCS: 97606; A4218 ==

== ENCOUNTER 2019-03-03 15:46 | Outpatient (CLI) | payer OTHER ==
[2019-03-03] MEDS ORDERED: Sodium Chloride 0.9% 15 ML NEB ONE (18:00)
== END 2019-03-03 15:47 | disposition home or self-care (01) ==
LOC: WCC 15:46
PROVIDERS: ATTEND Family Medicine
DX: T81.89XD Other complications of procedures, not elsewhere classified, subsequent encounter (principal)
CPT/HCPCS: 97606; A4218

== ENCOUNTER 2019-03-06 15:32 | Outpatient (CLI) | payer OTHER | END 2019-03-06 15:33 | disposition home or self-care (01) | LOC: WCC 15:32 | PROVIDERS: ATTEND Family Medicine | DX: T81.89XD Other complications of procedures, not elsewhere classified, subsequent encounter (principal) | CPT/HCPCS: 97606; A4218 ==

== ENCOUNTER 2019-03-10 14:08 | Outpatient (CLI) | payer OTHER ==
--- NOTE | 2019-03-10 22:06 | HP ---
HISTORY OF PRESENT ILLNESS: Ms. Stephie Washington is a very pleasant 53-year-old who presents [facility] for evaluation of a wound of the right anterior chest subsequent to seroma drainage by Dr. Alberto Ewign. The patient was subsequently referred to the [facility] for the initiation of negative pressure therapy. The patient's medical history is significant for right breast carcinoma for which the patient received chemotherapy. The patient had presented with a neglected right breast carcinoma. She underwent MediPort placement and underwent neoadjuvant chemotherapy. The patient apparently had a good response to her chemotherapy and because the mass of the upper outer right breast was too large for lumpectomy, the patient underwent modified radical mastectomy. The patient states that after surgery she began receiving radiation therapy. The radiation therapy, however, was interrupted when she developed a seroma. The surgical wound, which had been closed with marianne was opened by Dr. Ewing as stated previously to allow for drainage of the seroma. PAST MEDICAL HISTORY: 1. Right breast carcinoma. 2. Hypertension. PAST SURGICAL HISTORY: 1. MediPort placement. 2. Right modified radical mastectomy. 3. Tubal ligation. 4. Cholecystectomy. MEDICATIONS: 1. Clonidine. 2. Hydrochlorothiazide. 3. Lasix. ALLERGIES: NO KNOWN DIAGNOSED ALLERGIES. SOCIAL HISTORY: Social history is significant for tobacco use of 1/2 pack of cigarettes per day for 20 years. The patient admits to the consumption of 3 drinks per week also for approximately 20 years. FAMILY HISTORY: Family history is negative for diabetes mellitus or coronary artery disease. PHYSICAL EXAMINATION: VITAL SIGNS: Temperature 98.7, pulse 87, respirations 19, and blood pressure 174/99. GENERAL: A 53-year-old female, sitting on chair in examination room, in no acute distress. HEENT: Normocephalic and atraumatic. NECK: No nuchal rigidity. CHEST: Clear to auscultation. A wound of the right anterior chest is present, which measures approximately 1.4 x 3.2 cm. A tunnel is associated with the wound at the 1 o'clock position, which is approximately 4 cm in length. Granulation tissue is present within the wound margins. No purulent drainage is associated with the wound. No erythema of the skin surrounding the wound is present. No maceration of the skin of the periwound is noted. CV: Regular rate and rhythm. ABDOMEN: Soft. EXTREMITIES: No clubbing or cyanosis. NEUROLOGIC: Grossly nonfocal. ASSESSMENT AND PLAN: 1. Wound of right anterior chest, as described above. Negative pressure therapy will be continued with dressing changes of the wound VAC here in the [facility]. The patient states she will be seeing Dr. Ewing in the near future. I will see Maverick Felix again in 2 weeks. The patient understands and is in agreement with the preceding treatment plan. No antibiotics will be prescribed today based upon the appearance of the wound. 2. Right breast carcinoma. 3. Hypertension. Job ID: [id number]
== END 2019-03-10 14:09 | disposition home or self-care (01) ==
LOC: WCC 14:08
PROVIDERS: ATTEND Family Medicine
DX: T81.89XD Other complications of procedures, not elsewhere classified, subsequent encounter (principal); C50.911 Malignant neoplasm of unspecified site of right female breast; I10 Essential (primary) hypertension

== ENCOUNTER 2019-03-13 15:39 | Outpatient (CLI) | payer OTHER | END 2019-03-13 15:40 | disposition home or self-care (01) | LOC: WCC 15:39 | PROVIDERS: ATTEND Family Medicine | DX: T81.89XD Other complications of procedures, not elsewhere classified, subsequent encounter (principal) | CPT/HCPCS: 97606; A4218 ==

== ENCOUNTER 2019-03-17 15:35 | Outpatient (CLI) | payer OTHER ==
[2019-03-17] MEDS ORDERED: Sodium Chloride 0.9% 15 ML NEB ONE (18:00)
== END 2019-03-17 15:36 | disposition home or self-care (01) ==
LOC: WCC 15:35
PROVIDERS: ATTEND Family Medicine
DX: T81.89XD Other complications of procedures, not elsewhere classified, subsequent encounter (principal)
CPT/HCPCS: A4218

== ENCOUNTER 2019-03-20 15:53 | Outpatient (CLI) | payer OTHER | END 2019-03-20 15:54 | disposition home or self-care (01) | LOC: WCC 15:53 | PROVIDERS: ATTEND Family Medicine | DX: T81.89XD Other complications of procedures, not elsewhere classified, subsequent encounter (principal) | CPT/HCPCS: 97605; A4218 ==

== ENCOUNTER 2019-03-24 16:55 | Outpatient (CLI) | payer OTHER ==
[2019-03-24] MEDS ORDERED: Sodium Chloride 0.9% 15 ML NEB ONE (18:00)
== END 2019-03-24 16:56 | disposition home or self-care (01) ==
LOC: WCC 16:55
PROVIDERS: ATTEND Family Medicine
DX: T81.89XD Other complications of procedures, not elsewhere classified, subsequent encounter (principal)
CPT/HCPCS: 97605; A4218

== ENCOUNTER 2019-03-28 15:39 | Outpatient (CLI) | payer OTHER | END 2019-03-28 15:40 | disposition home or self-care (01) | LOC: WCC 15:39 | PROVIDERS: ATTEND Family Medicine | DX: T81.89XD Other complications of procedures, not elsewhere classified, subsequent encounter (principal) | CPT/HCPCS: 97605; A4218 ==

== ENCOUNTER 2019-04-03 15:43 | Outpatient (CLI) | payer OTHER | END 2019-04-03 15:44 | disposition home or self-care (01) | LOC: WCC 15:43 | PROVIDERS: ATTEND Family Medicine | DX: T81.89XD Other complications of procedures, not elsewhere classified, subsequent encounter (principal) | CPT/HCPCS: 99211; A4218; G0463 ==

== ENCOUNTER 2019-04-10 10:02 | Emergency (ER) | payer OTHER ==
[2019-04-10 10:50] LABS: #Eosinphils 0.1 thou/uL (0.0-0.7); #Lymphocytes 0.9 thou/uL (1.20-3.40); #Monocytes 0.5 thou/uL (0.11-0.59); #Neutrophils 3.2 thou/uL (1.40-6.50); %Basophils 0.3 % (0.0-1.0); %Eosinophils 1.2 % (0.0-10.0); %Lymphocytes 19.6 % (21.0-51.0); %Monocytes 10.6 % (0.0-10.0); %Neutrophils 68.3 % (42.0-75.0); Hemoglobin 13.1 g/dL (12.0-16.0); Mean Corpuscular HGB CONC 31.8 g/dL (32.0-36.0); Mean Corpuscular Hemoglobin 25.7 pg (27.0-31.0); Mean Corpuscular Volume 80.6 fL (78.0-98.0); Platelet Count 207 thou/uL (130-400); RBC Distribution Width 16.6 % (11.5-14.5); Red Blood Cell (RBC) Count 5.12 mill/uL (4.20-5.40); White Blood Cell (WBC) Count 4.7 thou/uL (4.8-10.8)
--- NOTE | 2019-04-10 11:03 | CT ---
CT BRAIN WITHOUT CONTRAST: HISTORY: Dizziness, unsteady gait FINDINGS: No evidence of acute infarct, hemorrhage, midline shift or abnormal extra-axial fluid collections is seen. The ventricular size is appropriate and the basilar cisterns are patent. The bony calvarium is intact. The visualized paranasal sinuses and mastoid air cells are well aerated. IMPRESSION: No CT evidence of acute intracranial process.
[2019-04-10 11:09] LABS: ALT (SGPT) 11 U/L (8-55); AST (SGOT) 15 U/L (5-34); Albumin 3.8 g/dL (3.5-5.0); Alkaline Phosphatase 91 U/L (40-150); Anion Gap 11 mmol/L (10-20); BUN (Urea Nitrogen) 14 mg/dL (9.8-20.1); Bilirubin, Total 0.4 mg/dL (0.2-1.2); Calc. Creatinine Clearance 0 mL/min (70-130); Calcium 8.9 mg/dL (7.8-10.44); Carbon Dioxide 23 mmol/L (22-29); Chloride 109 mmol/L (98-107); Estimated GFR-MDRD Greater than 90; Globulin 2.9 g/dL (2.4-3.5); Glucose 91 mg/dL (70-105); Potassium 3.9 mmol/L (3.5-5.1); Protein, Total 6.7 g/dL (6.0-8.3); Sodium 139 mmol/L (136-145)
== END 2019-04-10 12:13 | disposition home or self-care (01) ==
LOC: ERS 10:02
DX: R42 Dizziness and giddiness (principal); I10 Essential (primary) hypertension; R11.2 Nausea with vomiting, unspecified; F32.9 Major depressive disorder, single episode, unspecified; F17.220 Nicotine dependence, chewing tobacco, uncomplicated
CPT/HCPCS: 36415; 70450; 80053; 84484; 85025; 93005

== ENCOUNTER 2019-05-23 15:11 | Outpatient (CLI) | payer OTHER ==
--- NOTE | 2019-05-23 15:59 | BD ---
DEXA bone density scan: 05/23/2019 COMPARISON: None HISTORY: Postmenopausal female undergoing screening for osteoporosis Lumbar Spine: BMD (g/cm2) T-SCORE L1 0.978 -0.1 L2 1.035 0.1 L3 0.976 -1.0 L4 1.012 -0.4 L1-L4 1.001 -0.4 Femoral Neck: 0.751 -0.9 Total Femur: 1.095 1.3 FRAX-WHO fracture risk assessment tool was not reported as all T-Scores are at or above -1.0. IMPRESSION: Normal bone mineral density exam. Transcribed Date/Time: 05/23/2019 4:36 PM
== END 2019-05-23 15:12 | disposition home or self-care (01) ==
LOC: BICMAMMO 15:11
PROVIDERS: ATTEND Internal Medicine Hematology & Oncology
DX: Z13.820 Encounter for screening for osteoporosis (principal); C50.411 Malignant neoplasm of upper-outer quadrant of right female breast; Z78.0 Asymptomatic menopausal state
CPT/HCPCS: 77080

== ENCOUNTER 2019-06-06 08:57 | Day surgery (SDC) | payer OTHER ==
[~2019-06-06 08:57] MED LIST changes: +Goserelin Acetate 10.8 MG KIT SC SCH; -Sodium Chloride 0.9% 15 ML NEB ONE
[2019-06-06 09:18] VITALS: BP 171/96; TEMP 97.9
== END 2019-06-06 09:19 | disposition home or self-care (01) ==
LOC: ONC/OP 08:57
PROVIDERS: ATTEND Internal Medicine Hematology & Oncology
DX: Z51.11 Encounter for antineoplastic chemotherapy (principal); C50.411 Malignant neoplasm of upper-outer quadrant of right female breast; Z17.0 Estrogen receptor positive status [ER+]
CPT/HCPCS: 96402; J9202

== ENCOUNTER 2019-08-28 14:13 | Day surgery (SDC) | payer OTHER ==
[2019-08-28 14:25] VITALS: TEMP 98.3
[2019-08-28 14:37] VITALS: BP 184/108
== END 2019-08-28 14:36 | disposition home or self-care (01) ==
LOC: ONC/OP 14:13
PROVIDERS: ATTEND Internal Medicine Hematology & Oncology
DX: Z51.11 Encounter for antineoplastic chemotherapy (principal); C50.411 Malignant neoplasm of upper-outer quadrant of right female breast
CPT/HCPCS: 96402; J9202

== ENCOUNTER 2019-11-11 14:44 | Outpatient (CLI) | payer OTHER ==
--- NOTE | 2019-11-11 14:59 | RAD ---
EXAM: XR Abdomen 1 View/KUB PROVIDED CLINICAL HISTORY: Abdominal pain COMPARISON: None FINDINGS: Upper abdomen and right lateral abdomen is obscured from view. Surgical clips overlie the right upper quadrant. Calcifications overlie the pelvis likely related to phleboliths. No definite suspicious calcifications are appreciated. Bowel gas pattern is nonspecific. Minimal degenerative changes are se en in the spine. IMPRESSION: Nonspecific bowel gas pattern.
== END 2019-11-11 14:45 | disposition home or self-care (01) ==
LOC: RAD-FRANK 14:44
PROVIDERS: ATTEND Nurse Practitioner Family
DX: R10.9 Unspecified abdominal pain (principal)
CPT/HCPCS: 74018

== ENCOUNTER 2019-11-20 15:20 | Day surgery (SDC) | payer OTHER | END 2019-11-20 17:14 | disposition home or self-care (01) | LOC: ONC/OP 15:20 | PROVIDERS: ATTEND Internal Medicine Hematology & Oncology | DX: Z51.11 Encounter for antineoplastic chemotherapy (principal); C50.411 Malignant neoplasm of upper-outer quadrant of right female breast | CPT/HCPCS: 96402; J9202 ==

== ENCOUNTER 2019-12-04 15:44 | Outpatient (CLI) | payer OTHER ==
--- NOTE | 2019-12-04 16:08 | MMO ---
Left Breast MAMMO Unilat Diag DDI LT+JUANA. CLINICAL HISTORY: Patient is 54 years old and is seen for diagnostic exam. The patient has the following family history of breast cancer: maternal aunt, malignant (generic). The patient has a history of right Mastectomy in 2019 - malignant and right Ultrasound Guided Core Biopsy in 2018 - malignant. VIEWS: The views performed were: left craniocaudal; left craniocaudal with tomosynthesis; left mediolateral oblique; left mediolateral oblique with tomosynthesis; and left mediolateral with tomosynthesis. FILMS COMPARED: The present examination has been compared to prior imaging studies performed at [facility] on 02/14/2018 and 03/07/2018. This study has been interpreted with the assistance of computer-aided detection. MAMMOGRAM FINDINGS: The breast is heterogeneously dense, which could obscure a lesion on mammography. There are no suspicious masses, suspicious calcifications, or new areas of architectural distortion. IMPRESSION: THERE IS NO MAMMOGRAPHIC EVIDENCE OF MALIGNANCY. A ROUTINE FOLLOW-UP MAMMOGRAM IN 1 YEAR IS RECOMMENDED. THE RESULTS OF THIS EXAM WERE SENT TO THE PATIENT. ACR BI-RADS Category 1 - Negative MAMMOGRAPHY NOTE: 1. A negative mammogram report should not delay a biopsy if a dominant of clinically suspicious mass is present. 2. Approximately 10% to 15% of breast cancers are not detected by mammography. 3. Adenosis and dense breasts may obscure an underlying neoplasm. Reported by: ARIEL PERES MD Electonically Signed: [id number]
== END 2019-12-04 15:45 | disposition home or self-care (01) ==
LOC: BICMAMMO 15:44
PROVIDERS: ATTEND Specialist
DX: Z08 Encounter for follow-up examination after completed treatment for malignant neoplasm (principal); Z85.3 Personal history of malignant neoplasm of breast
CPT/HCPCS: G0279

== ENCOUNTER 2020-02-12 14:55 | Day surgery (SDC) | payer OTHER ==
[2020-02-12 15:41] VITALS: BP 157/83; TEMP 98.4
== END 2020-02-12 15:41 | disposition home or self-care (01) ==
LOC: ONC/OP 14:55
PROVIDERS: ATTEND Internal Medicine Hematology & Oncology
DX: C50.411 Malignant neoplasm of upper-outer quadrant of right female breast (principal); Z79.818 Long term (current) use of other agents affecting estrogen receptors and estrogen levels; Z17.0 Estrogen receptor positive status [ER+]
CPT/HCPCS: 96401; J9202

== ENCOUNTER 2020-02-17 10:44 | Outpatient (CLI) | payer OTHER ==
--- NOTE | 2020-02-17 11:01 | RAD ---
Exam: 1 view abdomen COMPARISON: 11/11/2019 HISTORY: Right-sided abdominal pain FINDINGS: Cholecystectomy clips are identified. Stable phlebolith in the left and right hemipelvis Nonspecific bowel gas pattern. No suspicious densities in the abdomen. No acute osseous abnormalities . IMPRESSION: Nonspecific bowel gas pattern.
== END 2020-02-17 10:45 | disposition home or self-care (01) ==
LOC: RAD-FRANK 10:44
PROVIDERS: ATTEND Nurse Practitioner Family
DX: R10.9 Unspecified abdominal pain (principal)
CPT/HCPCS: 74018

== ENCOUNTER 2020-02-25 10:42 | Inpatient (IN) | payer OTHER ==
[2020-02-25 11:16] LABS: #Lymphocytes 1.9 thou/uL (1.20-3.40); #Monocytes 1.9 thou/uL (0.11-0.59); %Basophils 0.3 % (0.0-1.0); %Eosinophils 0.1 % (0.0-10.0); %Lymphocytes 13.8 % (21.0-51.0); %Monocytes 13.8 % (0.0-10.0); Mean Corpuscular HGB CONC 32.2 g/dL (32.0-36.0); Mean Corpuscular Hemoglobin 25.8 pg (27.0-31.0); Mean Corpuscular Volume 80.1 fL (78.0-98.0); Mean Platelet Volume 7.5 fL (7.4-10.4); Platelet Count 390 thou/uL (130-400); RBC Distribution Width 13.4 % (11.5-14.5); Red Blood Cell (RBC) Count 4.66 mill/uL (4.20-5.40); White Blood Cell (WBC) Count 13.9 thou/uL (4.8-10.8)
--- NOTE | 2020-02-25 11:32 | RAD ---
CHEST 1 VIEW: Date: 02/25/2020 INDICATION: History of vaginal discharge and right upper quadrant abdominal pain with breast cancer. COMPARISON: Prior examination dated 07/18/2018. FINDINGS: There is mild elevation of the right hemidiaphragm. There is a left subclavian chest wall port which is stable appearing. Heart size is normal appearing. There is mild subsegmental volume loss within th e right lower lobe. Surgical clips are seen within the right axilla. No suspicious parenchymal opacit y or pleural effusion is noted. IMPRESSION: No definite acute abnormality. POS: [facility]
[2020-02-25 11:36] LABS: ALT (SGPT) 21 U/L (8-55); AST (SGOT) 48 U/L (5-34); Albumin 3.7 g/dL (3.5-5.0); Alkaline Phosphatase 131 U/L (40-110); Anion Gap 15 mmol/L (10-20); BUN (Urea Nitrogen) 7 mg/dL (9.8-20.1); Bilirubin, Total 0.9 mg/dL (0.2-1.2); Calc. Creatinine Clearance 0 mL/min (70-130); Calcium 9.3 mg/dL (7.8-10.44); Carbon Dioxide 23 mmol/L (22-29); Chloride 99 mmol/L (98-107); Estimated GFR-MDRD 81; Globulin 4.9 g/dL (2.4-3.5); Glucose 111 mg/dL (70-105); Potassium 3.8 mmol/L (3.5-5.1); Protein, Total 8.6 g/dL (6.0-8.3); Sodium 133 mmol/L (136-145)
[2020-02-25 11:38] LABS: Bilirubin Negative (Negative); Blood, Urine Trace (Negative); Clarity Turbid (Clear); Glucose, Urine (Dipstick) Normal (Negative); Leukocyte 500 Leu/uL (Negative); Nitrite Negative (Negative); Protein, Urine (Dipstick) 10 mg/dL (Neg-Trace); RBC/HPF 0-3 HPF (0-3); Urobilinogen Normal mg/dL (Less than 2); WBC/HPF Greater than 50 HPF (0-3)
[2020-02-25] MEDS ORDERED: Iopamidol-370 76% 500 ML 1 ML ONE (11:38)
[2020-02-25 11:45] LABS: Bacteria/HPF 1+ HPF (None Seen)
--- NOTE | 2020-02-25 12:18 | CT ---
CT ABDOMEN AND PELVIS WITH IV CONTRAST: Date: 02/25/2020 INDICATION: History of right-sided abdominal pain. COMPARISON: Prior CT of the abdomen and pelvis from [facility] dated 05/01/2018. FINDINGS: There are new small noncalcified pulmonary nodules within the right middle lobe, the largest measurin g 8.0 mm, that likely are likely reflective of new pulmonary metastatic disease. There are numerous hypodense lesions involving the liver consistent with hepatic metastatic disease. The largest is seen involving segment V and segment of the right hepatic lobe measuring 12.9 x 7.0 cm. There are prominent periportal lymphadenopathy measuring up to 1.5 cm. The pancreas, spleen, and adrenal glands are normal appearing. Kidneys are normal appearing. There ar e moderate vascular calcifications involving the abdominopelvic vasculature. There is a fibroid uteru s. Rectum and perirectal soft tissues are unremarkable. Mild free fluid is present within the pelvis. There is a new osteolytic lesion involving the left posterior ilium of the pelvis measuring 4.6 cm on image 62 of series 2. No additional focal osteolytic lesion is evident. IMPRESSION: Findings of metastatic disease to the right middle lobe of the lung, hepatic metastatic disease, heather gnant periportal abdominal lymphadenopathy, and osteolytic metastatic disease to the left posterior i lium. POS: [facility]
[2020-02-25] MEDS ORDERED: cefTRIAXone\\ROCEPHIN 2 GM VIAL ONE (12:40)
[2020-02-25] MEDS ORDERED: Vancomycin 1 GM/200 ML BAG ONE (13:13)
[2020-02-25] MEDS ORDERED: Ondansetron ODT 4 MG TAB SL PRN (15:48)
[2020-02-25] MEDS ORDERED: Acetaminophen 325 MG TAB PO PRN (15:48)
[2020-02-25] MEDS ORDERED: Sodium Chloride 0.9% 1,000 ML IV SCH (15:48)
[2020-02-25] MEDS ORDERED: Ondansetron PF 4 MG/2 ML Vial IVP PRN (15:48)
[2020-02-25] MEDS ORDERED: Morphine 4 MG/ML VIAL SLOW IVP PRN (15:49)
[2020-02-25 16:16] VITALS: BMI 30.8
[2020-02-25] MEDS ORDERED: ALPRAZolam 0.25 MG TAB PO PRN (16:44)
[2020-02-25] MEDS: Sodium Chloride 0.9% 1,000 ML IV SCH (17:32)
[2020-02-25] MEDS: hydrALAZINE 25 MG TAB PO SCH (20:01)
[2020-02-25] MEDS: HYDROcodone/Acetaminophen 5/325 mg Tablet PO PRN (20:14)
--- NOTE | 2020-02-26 00:21 | HP ---
CHIEF COMPLAINT: Abdominal pain. HISTORY OF PRESENT ILLNESS: The patient is a 54-year-old female with history of breast cancer, currently underwent chemotherapy, radiation therapy, who came in to the hospital with worsening abdominal pain going on for the past couple months. The patient stated that initially her abdominal pain was on her lower abdominal area. Her PCP initially thought that she probably had a UTI. She was first prescribed with ciprofloxacin and then after that with Bactrim. The patient stated that her symptoms kind of improved, however, not much and then her pain radiated up to her upper abdominal area. She states that for the past two or three months, her appetite has been very low. For the past month, she has been having some diaphoresis. She has been having also chills. She had a fever today. Denies any diarrhea. She denies any sick contacts. She also stated that she has been having some yellow discharge going on since November and December. PAST MEDICAL HISTORY: She has a history of breast cancer, currently under treatment and hypertension. PAST SURGICAL HISTORY: She has had tubal ligation, cholecystectomy, and also right breast modified radical mastectomy. She also had a MediPort placement. FAMILY HISTORY: Mother had throat cancer and sister has breast cancer. SOCIAL HISTORY: She continues to smoke. She still smokes two cigarettes a day. Occasional alcohol use. Denies any drug use. She is a full code. REVIEW OF SYSTEMS: All negative except for the ones mentioned above in the HPI. ALLERGIES: SHE HAS NO KNOWN DRUG ALLERGIES. MEDICATIONS: She is on; 1. Clonidine. 2. Hydrochlorothiazide. 3. Lasix. PHYSICAL EXAMINATION: VITAL SIGNS: As of the following; temperature of 99.6, heart rate 105, respiratory rate 18, 97% on room air, and blood pressure 141/72. GENERAL: She is awake, alert, and oriented x3. Does not appear in any distress. CARDIOVASCULAR: She has sinus tach. No murmurs or gallops heard. LUNGS: Clear to auscultation. No rhonchi or wheezes noted. ABDOMEN: Soft. Bowel sounds are present x2. Pain upon palpation to right upper quadrant area and bilateral lower abdominal area. EXTREMITIES: No edema. Pedal pulses are present x2. She does have a port to her left chest wall area. No redness or erythema noted. NEUROVASCULAR: No focal deficits noted. SKIN: No cuts, lesions, or bruises noted. LABORATORY RESULTS: WBCs of 13.9, hemoglobin of 12.0, hematocrit of 37.4. Her platelets are 390. Chemistry; sodium of 133, potassium of 3.8, BUN of 7, and creatinine of 0.88. AST of 48, alkaline phosphatase of 131. Her urine does have leukocyte esterase 500, wbc's. She did have a CT of abdomen and pelvis done today and a chest x-ray. CT of abdomen and pelvis indicated metastatic disease in the right middle lobe of the lung, hepatic metastatic disease, malignant periportal abdominal lymphadenopathy and osteolytic metastatic disease in the left posterior ilium. ASSESSMENT AND PLAN: The patient is a 54-year-old female, who presents to the hospital with abdominal pain. 1. Sepsis, unclear etiology at this time. We will start her on prophylactic antibiotics. She has some mild leukocytosis, unclear etiology at this time. Urine culture has been sent. Chest x-ray does not show any acute abnormalities. We will get COVID testing on her to rule out that and continue to monitor. 2. Breast cancer with metastatic lesions. Her fever could be from her underlying cancer. Blood cultures were sent. Again, we will wait for urine culture, blood culture, and continue to monitor. We will start the patient on some IV hydration. Oncology has been consulted. We will continue to monitor. 3. Hypertension. We will continue her home medications. 4. Deep venous thrombosis prophylaxis. We will put the patient on SCDs. Job ID: [id number]
[2020-02-26] MEDS: Vancomycin 1.5 GRAM/300 ML BAG 1.5 GM in Premix Bag 1 BAG IVPB SCH ×2 (01:14→14:24)
[2020-02-26] MEDS: Sodium Chloride 0.9% 1,000 ML IV SCH ×2 (01:14→19:39)
[2020-02-26] MEDS: HYDROcodone/Acetaminophen 5/325 mg Tablet PO PRN ×2 (05:28→19:59)
[2020-02-26 05:57] LABS: Anion Gap 12 mmol/L (10-20); BUN (Urea Nitrogen) 6 mg/dL (9.8-20.1); Calc. Creatinine Clearance 126 mL/min (70-130); Calcium 8.7 mg/dL (7.8-10.44); Carbon Dioxide 22 mmol/L (22-29); Chloride 105 mmol/L (98-107); Estimated GFR-MDRD Greater than 90; Glucose 94 mg/dL (70-105); Potassium 3.9 mmol/L (3.5-5.1); Sodium 135 mmol/L (136-145)
[2020-02-26 06:05] LABS: Band 11 % (5-11); Lymphocytes 11 % (21-51); MDiff Complete? YES; Mean Corpuscular HGB CONC 32.8 g/dL (32.0-36.0); Mean Corpuscular Hemoglobin 26.7 pg (27.0-31.0); Mean Corpuscular Volume 81.4 fL (78.0-98.0); Mean Platelet Volume 7.9 fL (7.4-10.4); Monocytes 14 % (0-10); Neutrophil 64 % (42-75); Platelet Count 319 thou/uL (130-400); Platelet Morphology Comment Appears Adequate; RBC Distribution Width 13.4 % (11.5-14.5); Red Blood Cell (RBC) Count 4.12 mill/uL (4.20-5.40)
[2020-02-26] MEDS: Enoxaparin Sodium 40 MG/0.4 ML SYRINGE SC SCH (09:06)
[2020-02-26] MEDS: hydrALAZINE 25 MG TAB PO SCH ×3 (09:06→20:01)
[2020-02-26 11:04] LABS: SARS-CoV-2 MS2 Positive; SARS-CoV-2 N Gene Negative; SARS-CoV-2 S Gene Negative; SARS-CoV-2 orf1ab Negative
[2020-02-26 12:59] LABS: INR-International Normal Ratio 1.5; PTT 41.8 sec (22.9-36.1); Prothrombin Time 17.8 sec (12.0-14.7)
[2020-02-26] MEDS: metroNIDAZOLE 500 MG TAB PO SCH ×2 (14:23→20:00)
[2020-02-26] MEDS: cefTRIAXone\\ROCEPHIN 1 GM in Sodium Chloride 0.9% 100 ML IVPB SCH (20:01)
[2020-02-26] MEDS: Senokot S 8.6-50 MG TAB PO PRN (20:01)
[2020-02-26] MEDS ORDERED: HYDROcodone/Acetaminophen 5/325 mg Tablet PO PRN (20:33)
[2020-02-26 20:45] LABS: Chlamydia by PCR Not Detected (NotDetected); GC by PCR Not Detected (NotDetected)
--- NOTE | 2020-02-26 20:58 | CON ---
DATE OF CONSULTATION: REASON FOR CONSULTATION: Metastatic disease. HISTORY OF PRESENT ILLNESS: Ms. Washington is a pleasant 54-year-old female who was treated for stage IIIB, grade 2, ER positive, [place] negative, HER2 negative, moderately differentiated invasive ductal carcinoma of the right breast. She had a 10 to 12 cm mass encompassing her right upper quadrant at diagnosis. She underwent 4 cycles of neoadjuvant dose, Adriamycin, Cytoxan with weekly Taxol. She had a mastectomy. She had postmastectomy radiation therapy. She then was started on Zoladex and Arimidex for a total estrogen blockade. She has been on that treatment since May of 2019. Over the past 3 months, she states she began to have intermittent right upper quadrant abdominal pain with frequent nausea. She had a 20-pound weight loss. She presented to the emergency room yesterday with abdominal pain. She has also been having intermittent fevers and has been treated for a UTI. She underwent a CT scan of her abdomen and pelvis, which showed a noncalcified pulmonary nodule measuring 8 mm. There were numerous liver lesions, consistent with metastatic disease. The largest was in the right hepatic lobe measuring 12.9 x 7 cm. She had periportal lymphadenopathy. There were new osteolytic lesions in the left posterior ilium of the pelvis. Due to her fever, she was placed on COVID precautions. Her serology returned today negative. The patient was seen at bedside. She is tearful. She has intermittent pain, but it is controlled with Raymond. PAST MEDICAL HISTORY: 1. Stage IIIB invasive ductal carcinoma of the right breast, status post chemo, radiation, and mastectomy. 2. Hypertension. 3. Heart murmur. 4. History of iron-deficient anemia. PAST SURGICAL HISTORY: 1. Tubal ligation. 2. Cholecystectomy. 3. MediPort placement. 4. Mastectomy. ALLERGIES: NO KNOWN DRUG ALLERGIES. HOME MEDICATIONS: 1. Amitriptyline. 2. Arimidex. 3. Clonidine. 4. Hydralazine. 5. Losartan. 6. Trazodone. FAMILY HISTORY: Aunt had breast cancer. No history of ovarian cancer. SOCIAL HISTORY: Single, has 4 children. Lives with a daughter. Former smoker with a [id number] history. No alcohol or illicit drug use. REVIEW OF SYSTEMS: A 10-point review of systems is negative except for noted in HPI. PHYSICAL EXAMINATION: VITAL SIGNS: Temperature 99.5, pulse is 114, respiratory rate 18, blood pressure is 127/77. She is 96% on room air. GENERAL: This is an obese female, in no acute distress. HEENT: Normocephalic and atraumatic. Pupils are equal and reactive to light. NECK: Supple. CV: Regular rate and rhythm. LUNGS: Clear anteriorly. ABDOMEN: Soft. Bowel sounds are positive. She does have mild tenderness to palpation in the right upper quadrant. EXTREMITIES: No clubbing or cyanosis. SKIN: No rash. NEUROLOGICAL: Nonfocal. PERTINENT LABORATORY DATA AND X-RAYS: Current WBCs 14, hemoglobin 11, hematocrit 33.5, platelet count 319,000, she got 72% neutrophils, 13% bands. Sodium 135, potassium 3.9, chloride 105, CO2 is 22, BUN is 6, creatinine 0.69. Lactic acid 1.8, calcium 8.7, bilirubin 0.9, AST is 48, ALT is 21, alkaline phosphatase is 131. Serum total protein 8.6, albumin 3.7, globulin 4.9. PT is 17.8, INR is 1.5, and PTT is 41.8. Urine shows 1+ bacteria. COVID negative. Radiology per HPI. ASSESSMENT: 1. Metastatic liver lesions. 2. History of breast cancer, currently on Zoladex and Arimidex. DISCUSSION: The patient has new lesions in her liver consistent with metastatic disease. She needs a biopsy to confirm breast cancer and hormone receptor sensitivity to complete staging. I will get a chest CT and a brain MRI as well as a bone scan. She appears to have metastatic disease of the bones. The case has been discussed in detail with Dr. Hernandez. Further recommendations will be based on these results. Thank you for the consult. Job ID: [id number]
[2020-02-27] MEDS: Vancomycin 1.5 GRAM/300 ML BAG 1.5 GM in Premix Bag 1 BAG IVPB SCH (02:32)
[2020-02-27] MEDS: Morphine 4 MG/ML VIAL SLOW IVP PRN ×2 (02:35→20:52)
[2020-02-27] MEDS: Enoxaparin Sodium 40 MG/0.4 ML SYRINGE SC SCH (08:47)
--- NOTE | 2020-02-27 08:54 | PDOC.HOSPP ---
- Subjective Encounter Date: 02/26/20 Encounter Time: 17:00 Subjective: pt up in bed no complains - Objective Vital Signs & Weight: Vital Signs (12 hours) Temp Pulse Resp BP Pulse Ox 02/27/20 07:26 98.7 F 97 20 147/85 H 96 02/27/20 03:46 98.9 F 99 16 139/78 98 02/26/20 23:56 99 F Weight Admit Weight 188 lb 3.2 oz Weight 188 lb 3.2 oz I&O: 02/26/20 02/27/20 02/28/20 06:59 06:59 06:59 Intake Total 4531 Output Total 1200 Balance 3331 Result Diagrams: 02/26/20 05:11 02/26/20 05:11 Hospitalist ROS - Review of Systems Respiratory: denies: cough, dry, shortness of breath, hemoptysis, SOB with excertion, pleuritic pain, sputum, wheezing, other Cardiovascular: denies: chest pain, palpitations, orthopnea, paroxysmal noc. dyspnea, edema, light headedness, other Gastrointestinal: denies: nausea, vomiting, abdominal pain, diarrhea, constipation, melena, hematochezia, other - Medication Medications: Active Medications Generic Name Dose Route Start Last Admin Trade Name Freq PRN Reason Stop Dose Admin Enoxaparin Sodium 40 mg 02/26/20 09:00 02/27/20 08:47 Lovenox SC Not Given 0900 PATY Hydralazine HCl 100 mg 02/25/20 21:00 02/26/20 20:01 Apresoline PO 100 mg TID PATY Administration Sodium Chloride 1,000 mls @ 75 mls/hr 02/25/20 16:30 02/26/20 19:39 Normal Saline 0.9% IV 1,000 mls .[id number] PATY Administration Ceftriaxone Sodium 1 gm/ 100 mls @ 200 mls/hr 02/26/20 21:00 02/26/20 20:01 Sodium Chloride IVPB 100 mls 2100 PATY Administration Vancomycin HCl 1.5 gm/ Device 300 mls @ 200 mls/hr 02/26/20 02:00 02/27/20 02 :32 IVPB 300 mls 0200,1400 PATY Administration Metronidazole 500 mg 02/26/20 15:00 02/26/20 20:00 Flagyl PO 500 mg TID PATY Administration Morphine Sulfate 4 mg 02/26/20 20:34 02/27/20 02:35 Morphine SLOW IVP 4 mg Q4H PRN Administration Moderate to Severe Pain (6-10) Senna/Docusate Sodium 2 tab 02/25/20 16:24 02/26/20 20:01 Senokot S PO 2 tab BID PRN Administration Constipation Sodium Chloride 10 ml 02/26/20 21:00 02/26/20 19:40 Flush - Normal Saline IVF Not Given Q12HR PATY - Exam Neck: negative: supple, symmetric, no JVD, no thyromegaly, no lymphadenopathy, no carotid bruit, JVD Heart: negative: RRR, no murmur, no gallops, no rubs, normal peripheral pulses, irregular, diminshed peripheral pulses, murmur present, II/IV, III/IV Respiratory: negative: CTAB, no wheezes, no rales, no ronchi, normal chest expansion, no tachypnea, normal percussion, rales, rhonchi, tachypneic, wheezes Hosp A/P (1) Sepsis Code(s): A41.9 - SEPSIS, UNSPECIFIED ORGANISM Status: Acute (2) Breast cancer Status: Acute (3) Trichomonal vaginitis Status: Acute - Plan pt has metastatic breast cancer. pt has been ordered additional testing. covid negative. she has been afebrile will change abx to po.
--- NOTE | 2020-02-27 08:56 | PDOC.HOSPP ---
- Objective Vital Signs & Weight: Vital Signs (12 hours) Temp Pulse Resp BP Pulse Ox 02/27/20 07:26 98.7 F 97 20 147/85 H 96 02/27/20 03:46 98.9 F 99 16 139/78 98 02/26/20 23:56 99 F Weight Admit Weight 188 lb 3.2 oz Weight 188 lb 3.2 oz I&O: 02/26/20 02/27/20 02/28/20 06:59 06:59 06:59 Intake Total 4531 Output Total 1200 Balance 3331 Result Diagrams: 02/26/20 05:11 02/26/20 05:11 Hospitalist ROS - Medication Medications: Active Medications Generic Name Dose Route Start Last Admin Trade Name Freq PRN Reason Stop Dose Admin Enoxaparin Sodium 40 mg 02/26/20 09:00 02/27/20 08:47 Lovenox SC Not Given 0900 PATY Hydralazine HCl 100 mg 02/25/20 21:00 02/26/20 20:01 Apresoline PO 100 mg TID PATY Administration Sodium Chloride 1,000 mls @ 75 mls/hr 02/25/20 16:30 02/26/20 19:39 Normal Saline 0.9% IV 1,000 mls .[id number] PATY Administration Ceftriaxone Sodium 1 gm/ 100 mls @ 200 mls/hr 02/26/20 21:00 02/26/20 20:01 Sodium Chloride IVPB 100 mls 2100 PATY Administration Vancomycin HCl 1.5 gm/ Device 300 mls @ 200 mls/hr 02/26/20 02:00 02/27/20 02 :32 IVPB 300 mls 0200,1400 PATY Administration Metronidazole 500 mg 02/26/20 15:00 02/26/20 20:00 Flagyl PO 500 mg TID PATY Administration Morphine Sulfate 4 mg 02/26/20 20:34 02/27/20 02:35 Morphine SLOW IVP 4 mg Q4H PRN Administration Moderate to Severe Pain (6-10) Senna/Docusate Sodium 2 tab 02/25/20 16:24 02/26/20 20:01 Senokot S PO 2 tab BID PRN Administration Constipation Sodium Chloride 10 ml 02/26/20 21:00 02/26/20 19:40 Flush - Normal Saline IVF Not Given Q12HR PATY Hosp A/P (1) Sepsis Code(s): A41.9 - SEPSIS, UNSPECIFIED ORGANISM Status: Acute (2) Breast cancer Status: Acute - Plan pt has metastatic breast cancer. pt has been ordered additional testing. covid negative. she has been afebrile will change abx to po.
[2020-02-27] MEDS: metroNIDAZOLE 500 MG TAB PO SCH ×3 (09:28→20:51)
[2020-02-27] MEDS: hydrALAZINE 25 MG TAB PO SCH ×3 (09:28→20:50)
[2020-02-27] MEDS ORDERED: Iopamidol 370 76% 100 ML VIAL ONE (10:13)
[2020-02-27] MEDS ORDERED: Magnevist 469MG/ML 20 ML VIAL ONE (10:21)
[2020-02-27] MEDS ORDERED: Midazolam HCl 2 mg/2 ml Vial ONE (10:26)
[2020-02-27] MEDS ORDERED: Fentanyl 100 MCG/2 ML VIAL ONE (10:26)
[2020-02-27] MEDS ORDERED: Sodium Bicarbonate 2.5 MEQ/5 ML VIAL ONE (10:27)
[2020-02-27] MEDS ORDERED: Lidocaine 1% PF 5 ML VIAL ONE (10:27)
--- NOTE | 2020-02-27 11:10 | MRI ---
MRI BRAIN WITH AND WITHOUT IV CONTRAST: HISTORY: Metastatic breast cancer. FINDINGS: No evidence of infarct, hemorrhage, mass, midline shift, or abnormal extraaxial fluid collections are seen. No restricted diffusion is identified. No abnormal postcontrast enhancement is seen. The ve ntricular size is normal and the basilar cisterns are patent. No signal abnormalities are noted on t he highly sensitive FLAIR images. There is a mucous retention cyst versus polyp at the floor of the left maxillary sinus. An 11 mm Tor nwaldt cyst is present at the nasopharynx. IMPRESSION: No evidence of intracranial metastatic disease. POS: [facility]
[2020-02-27] MEDS: Sodium Chloride 0.9% 1,000 ML IV SCH (11:59)
--- NOTE | 2020-02-27 12:21 | CT ---
CT chest with IV contrast HISTORY: Breast cancer. Liver mass. Metastatic disease. COMPARISON: 05/01/2018. FINDINGS: Small amount right pleural fluid with compressive atelectasis at the right lung base and mi ld linear atelectasis at the left lung base. An oval 0.8 cm subpleural nodule is now present within the lateral aspect of the right middle lobe. Tiny nonspecific subpleural nodules are present within e ach lung, most notably at the far anterior aspect of the right upper lobe. Nonenlarged, nonspecific lymph nodes are scattered throughout the mediastinum. Right breast is surgic ally absent with hemostasis clips at the right axilla. Within the partially visualized upper abdomen, large liver masses and other findings are again demons trated, as better detailed on recent CT abdomen. IMPRESSION : The 0.8 cm nodule in the right middle lobe likely represents a metastatic focus. Additional tiny subp leural nodules are nonspecific. Small right pleural effusion
--- NOTE | 2020-02-27 13:02 | CT ---
CT-guided biopsy liver mass HISTORY: Large liver mass. FINDINGS: After explaining the procedure and answering all questions, limited CT imaging the abdomen was performed. Sterile technique, buffered local anesthesia, CT guidance, and a right upper quadrant anterior approach were used to carefully advance a 17-gauge trocar needle to the heterogeneo us large hypodense mass within the medial segment left liver lobe. A total of 3 18-gauge core biopsy specimens were obtained and sent to pathology for evaluation. Needle was removed. No evidence of complication. Patient tolerated the procedure well and was returne d in unchanged condition. IMPRESSION : Technically successful CT-guided biopsy liver mass. Pathology is pending.
--- NOTE | 2020-02-27 13:51 | NM ---
NUCLEAR MEDICINE BONE SCAN WHOLE BODY: (Skeletal scintigraphy) DATE: 02/27/2020 HISTORY: 54-year-old female with breast cancer. Evaluate for bone metastasis. TECHNIQUE: IV injection of technetium 99m-MDP: 32.4 mCi 3 hour delayed whole body skeletal scintigraphy in anterior and posterior views. FINDINGS: There are no foci of asymmetrically increased uptake that are particularly suspicious for bone metast ases. IMPRESSION: No compelling evidence of skeletal metastasis.
--- NOTE | 2020-02-27 14:35 | PDOC.MOPN ---
Interval History: feeling better today, eating well. No nausea, pain controlled. - Vital Signs Vital Signs: Vital Signs (12 hours) Temp Pulse Resp BP BP Pulse Ox 02/27/20 11:54 99.2 F 122 H 16 136/80 99 02/27/20 09:27 114 H 145/92 H 02/27/20 07:26 98.7 F 97 20 147/85 H 96 02/27/20 03:46 98.9 F 99 16 139/78 98 Weight Admit Weight 188 lb 3.2 oz Weight 188 lb 3.2 oz - Physical Exam General: Alert, Oriented x3, No acute distress HEENT: Atraumatic, PERRLA, EOMI, Mucous membr. moist/pink Lungs: Clear to auscultation, Normal air movement Cardiovascular: Regular rate, Normal S1, Normal S2, No murmurs, Gallops, Rubs Abdomen: Normal bowel sounds, Soft, No tenderness, No hepatospenomegaly, No masses Extremities: No clubbing, No cyanosis, No edema, Normal pulses, No tenderness/ swelling Neurological: Normal gait, Normal speech, Strength at 5/5 X4 ext, Normal tone, Sensation intact, Cranial nerves 3-12 NL, Reflexes 2+ - Labs Result Diagrams: 02/26/20 05:11 02/26/20 05:11 Lab results: Laboratory Results - last 24 hr 02/25/20 13:05: Chlamydia DNA (PCR) Not Detected, Chlamydia/GC Spec Info , N gonorrhoeae DNA (PCR) Not Detected Status: lab reviewed by me A/P - Problem (1) Breast cancer Current Visit: Yes Status: Acute - Plan Plan: biopsy completed without complication pain controlled and eating well Ok to ut home and follow-up in clinic next week for results and plan.
--- NOTE | 2020-02-27 15:32 | PDOC.HOSPP ---
- Subjective Encounter Date: 02/27/20 Encounter Time: 09:00 Subjective: pt up in bed complains of pain to her abdomen - Objective Vital Signs & Weight: Vital Signs (12 hours) Temp Pulse Resp BP BP Pulse Ox 02/27/20 15:11 99.2 F 113 H 16 133/82 96 02/27/20 11:54 99.2 F 122 H 16 136/80 99 02/27/20 09:27 114 H 145/92 H 02/27/20 07:26 98.7 F 97 20 147/85 H 96 02/27/20 03:46 98.9 F 99 16 139/78 98 Weight Admit Weight 188 lb 3.2 oz Weight 188 lb 3.2 oz I&O: 02/26/20 02/27/20 02/28/20 06:59 06:59 06:59 Intake Total 4531 Output Total 1200 Balance 3331 Result Diagrams: 02/26/20 05:11 02/26/20 05:11 Hospitalist ROS - Review of Systems Cardiovascular: denies: chest pain, palpitations, orthopnea, paroxysmal noc. dyspnea, edema, light headedness, other Gastrointestinal: denies: nausea, vomiting, abdominal pain, diarrhea, constipation, melena, hematochezia, other Genitourinary: denies: dysuria, frequency, incontinence, hematuria, retention, other - Medication Medications: Active Medications Generic Name Dose Route Start Last Admin Trade Name Freq PRN Reason Stop Dose Admin Enoxaparin Sodium 40 mg 02/26/20 09:00 02/27/20 08:47 Lovenox SC Not Given 0900 PATY Hydralazine HCl 100 mg 02/25/20 21:00 02/27/20 15:13 Apresoline PO 100 mg TID PATY Administration Sodium Chloride 1,000 mls @ 75 mls/hr 02/25/20 16:30 02/27/20 11:59 Normal Saline 0.9% IV 1,000 mls .[id number] PATY Administration Ceftriaxone Sodium 1 gm/ 100 mls @ 200 mls/hr 02/26/20 21:00 02/26/20 20:01 Sodium Chloride IVPB 100 mls 2100 PATY Administration Metronidazole 500 mg 02/26/20 15:00 02/27/20 15:12 Flagyl PO 500 mg TID PATY Administration Morphine Sulfate 4 mg 02/26/20 20:34 06/05/20 02:35 Morphine SLOW IVP 4 mg Q4H PRN Administration Moderate to Severe Pain (6-10) Senna/Docusate Sodium 2 tab 02/25/20 16:24 02/26/20 20:01 Senokot S PO 2 tab BID PRN Administration Constipation Sodium Chloride 10 ml 02/26/20 21:00 02/27/20 09:28 Flush - Normal Saline IVF 10 ml Q12HR PATY Administration - Exam Neck: negative: supple, symmetric, no JVD, no thyromegaly, no lymphadenopathy, no carotid bruit, JVD Heart: negative: RRR, no murmur, no gallops, no rubs, normal peripheral pulses, irregular, diminshed peripheral pulses, murmur present, II/IV, III/IV Respiratory: negative: CTAB, no wheezes, no rales, no ronchi, normal chest expansion, no tachypnea, normal percussion, rales, rhonchi, tachypneic, wheezes Gastrointestinal: soft, normal bowel sounds Gastrointestinal - other findings: mild pain on palpation to RUQ Hosp A/P (1) Sepsis Code(s): A41.9 - SEPSIS, UNSPECIFIED ORGANISM Status: Acute (2) Breast cancer Status: Acute (3) Trichomonal vaginitis Status: Acute - Plan pt has metastatic breast cancer. pt has been ordered additional testing. covid negative. she has been afebrile will change abx to po. 02/26 will stop vanco, will continue other abx for now. blood cx negative. possible discharge in the next 24hr. s/p liver biopsy. mri negative for mets.
[2020-02-27] MEDS: Senokot S 8.6-50 MG TAB PO PRN (17:29)
[2020-02-27] MEDS: cefTRIAXone\\ROCEPHIN 1 GM in Sodium Chloride 0.9% 100 ML IVPB SCH (20:51)
[2020-02-28] MEDS: Sodium Chloride 0.9% 1,000 ML IV SCH (02:03)
[2020-02-28 07:43] LABS: #Basophils 0.1 thou/uL (0.0-0.2); #Eosinphils 0.1 thou/uL (0.0-0.7); #Lymphocytes 1.5 thou/uL (1.20-3.40); #Monocytes 0.9 thou/uL (0.11-0.59); #Neutrophils 6.6 thou/uL (1.40-6.50); %Basophils 0.6 % (0.0-1.0); %Eosinophils 0.6 % (0.0-10.0); %Lymphocytes 16.1 % (21.0-51.0); %Monocytes 10.4 % (0.0-10.0); %Neutrophils 72.4 % (42.0-75.0); Hemoglobin 9.7 g/dL (12.0-16.0); Mean Corpuscular HGB CONC 33.3 g/dL (32.0-36.0); Mean Corpuscular Hemoglobin 26.8 pg (27.0-31.0); Mean Corpuscular Volume 80.6 fL (78.0-98.0); Mean Platelet Volume 7.7 fL (7.4-10.4); Platelet Count 319 thou/uL (130-400); RBC Distribution Width 13.5 % (11.5-14.5); Red Blood Cell (RBC) Count 3.61 mill/uL (4.20-5.40); White Blood Cell (WBC) Count 9.1 thou/uL (4.8-10.8)
[2020-02-28 08:04] LABS: ALT (SGPT) 14 U/L (8-55); AST (SGOT) 28 U/L (5-34); Albumin 2.8 g/dL (3.5-5.0); Alkaline Phosphatase 131 U/L (40-110); Anion Gap 12 mmol/L (10-20); BUN (Urea Nitrogen) 7 mg/dL (9.8-20.1); Bilirubin, Total 0.4 mg/dL (0.2-1.2); Calc. Creatinine Clearance 147 mL/min (70-130); Calcium 8.5 mg/dL (7.8-10.44); Carbon Dioxide 22 mmol/L (22-29); Chloride 107 mmol/L (98-107); Estimated GFR-MDRD Greater than 90; Globulin 3.9 g/dL (2.4-3.5); Glucose 95 mg/dL (70-105); Potassium 3.5 mmol/L (3.5-5.1); Protein, Total 6.7 g/dL (6.0-8.3); Sodium 137 mmol/L (136-145)
[2020-02-28] MEDS: Enoxaparin Sodium 40 MG/0.4 ML SYRINGE SC SCH (08:13)
[2020-02-28] MEDS: metroNIDAZOLE 500 MG TAB PO SCH (08:13)
[2020-02-28] MEDS: hydrALAZINE 25 MG TAB PO SCH (08:13)
[2020-02-28 11:34] VITALS: BP 162/84; TEMP 99
--- NOTE | 2020-02-28 13:58 | EKG ---
Test Reason : Blood Pressure : / mmHG Vent. Rate : 120 BPM Atrial Rate : 120 BPM P-R Int : 136 ms QRS Dur : 086 ms QT Int : 334 ms P-R-T Axes : 045 004 040 degrees QTc Int : 472 ms Sinus tachycardia Possible Left atrial enlargement Borderline ECG Confirmed by SINGH FLYNN MD ([id number]), subeditor BRADY NEW ([id number]) on 02/28/2020 1:58:04 PM Referred By: Confirmed By:SINGH FLYNN MD
--- NOTE | 2020-02-28 19:01 | DIS ---
DATE OF ADMISSION: 02/25/2020 DATE OF DISCHARGE: 02/28/2020 DISCHARGE DIAGNOSES: As of the following; 1. Fever, resolved. 2. Sepsis, unknown etiology, unclear. 3. Breast cancer with newly found metastatic disease. 4. Trichomonas vaginitis. HOSPITAL COURSE: The patient is a 54-year-old female, who initially presented to the hospital with fevers and abdominal pain. She underwent urinalysis, which appeared to have some leukocyte esterase and wbc's were 15 greater; however, the culture was 10,000 to 25,000 mixed skin mike. Her blood cultures were negative. She did have some vaginal discharge at this time. Vaginal swab indicated Trichomonas and she was treated. While the patient was in the hospital, she underwent a CT of abdomen and pelvis for her abdominal pain and was noted to have significant liver metastatic disease. At this time, Oncology Services was consulted. The patient underwent a bone scan, which was negative. MRI brain, which was negative. She had a liver biopsy done and she underwent a CT chest since the CT of abdomen and pelvis indicated possible metastatic lesion to the lung. The CT chest indicated 0.8 cm nodule to the right middle lobe, most likely a metastatic foci. This was transmitted to the patient. The patient will follow up for her liver pathology with her oncologist next week. The patient is eating well. No issues. Her H and H have been low, but stable. PHYSICAL EXAMINATION: VITAL SIGNS: Temperature of 99.0, pulse 98, respirations 20, oxygen saturation 97% on room air, and blood pressure 162/84. GENERAL: She is awake, alert, and oriented x3, does not appear in any distress. CV: S1 and S2 present. No murmurs, rubs, or gallops. She was tested for COVID and her COVID was negative. HOME MEDICATIONS: Will be as of the following; 1. Restoril 15 mg at bedtime p.r.n. 2. Amitriptyline 50 mg at bedtime. 3. Clonidine 0.2 mg at bedtime. 4. Hydralazine 100 mg b.i.d. 5. Flagyl 500 mg twice a day for another 5 days. 6. Colace as needed. 7. Tylenol No. 3 one tab q.6 hours p.r.n. for pain. 8. Anastrozole 1 mg p.o. daily. The patient again will be discharged home. She will follow up with her primary and also with Oncology. Job ID: [id number]
--- NOTE | 2020-03-02 05:54 | PQF ---
TANYA JIMENEZ KARISHMA [id number] [id number] CLINICAL DOCUMENTATION CLARIFICATION FORM: POST DISCHARGE Addendum to original discharge summary date: ____ Late entry note date: __ Date: 03/02/2020 ATTN: Melvina Ng Please exercise your independent, professional judgment in responding to the clarification form. Clinical indicators are provided on the bottom of this form for your review Please check appropriate box(s): [ ] Protein Calorie Malnutrition: [ ] Mild [x ] Moderate [ ] Severe [ ] Other Malnutrition (please specify) __ [ ] Underweight without malnutrition [ ] Cachexia [ ] Other diagnosis [ ] Unable to determine In addition, please specify: Present on Admission (POA): [ x ] Yes [ ] No [ ] Unable to determine CLINICAL INDICATORS - SIGNS / SYMPTOMS / LABS Laboratory 02/27 Albumin 2.8, Globulin 3.9, Ratio 0.7 BMI of 33.4 Nutritional assessment 02/25 Pt reported limited oral intake for 2 months and has had 9.1% weight loss in 9-10 months Nutritional assessment 02/25 Has had 20lbs weight loss RISK FACTORS H&P p1 02/24 54 year-old Female H&P p1 02/24 Hx of Breast cancer H&P p1 02/24 -HTN TREATMENT: Dietary consult Nutritional assessment 02/25 -Nutritional supplements Nutritional assessment 02/25 -Weight monitoring Nutritional assessment 02/25 - Ensure to aid with intake Moderate Malnutrition (in acute illness) Energy Intake: <75% of estimated energy requirement for > 7 days Weight Loss: 1-2%/1 week; 5%/ 1 month; 7.5%/3 months Other: mild body fat loss; mild muscle mass loss; mild fluid accumulation; Severe Malnutrition (in acute illness) Energy Intake: < 50% of estimated energy requirement for > 5 days Weight Loss: >1-2%/1 week; >5%/1 month; >7.5%/3 months Other: moderate body fat loss; moderate muscle mass loss; moderate- severe fluid accumulation; measurably reduced director of public safety strength Moderate Malnutrition (in chronic illness) Energy Intake: <75% of estimated energy requirement for >1 month Weight Loss: 5%/1 month; 7.5%/3 months; 10%/6 months; 20%/1 year Other: mild body fat loss; mild muscle mass loss; mild fluid accumulation Severe Malnutrition (in chronic illness) Energy Intake: <75% of estimated energy requirement for >1 month Weight Loss: >5%/1 month; >7.5%/3 months; >10%/6 months; >20%/1 year Other: severe body fat loss; severe muscle mass loss; severe fluid accumulation ; measurably reduced director of public safety strength (This form is maintained as a part of the permanent medical record) 2014 [employer]. All Rights Reserved [email or web address]
--- NOTE | 2020-03-03 14:44 | CT ---
CT-guided biopsy liver mass HISTORY: Large liver mass. FINDINGS: After explaining the procedure and answering all questions, limited CT imaging the abdomen was performed. Sterile technique, buffered local anesthesia, CT guidance, and a right upper quadrant anterior approach were used to carefully advance a 17-gauge trocar needle to the heterogeneo us large hypodense mass within the medial segment left liver lobe. A total of 3 18-gauge core biopsy specimens were obtained and sent to pathology for evaluation. Needle was removed. No evidence of complication. Patient tolerated the procedure well and was returne d in unchanged condition. IMPRESSION : Technically successful CT-guided biopsy liver mass. Pathology is pending. Transcribed Date/Time: 03/03/2020 2:44 PM
== END 2020-02-28 11:58 | disposition home or self-care (01) | DRG 435 ==
LOC: ERS 10:42 → 2SW 14:44 → 2NO 02-26 15:03
PROVIDERS: ADMIT Internal Medicine; ATTEND Internal Medicine
PROC: 0FB23ZX Excision of Left Lobe Liver, Percutaneous Approach, Diagnostic (ICD-10-PCS; principal; 2020-02-27)
DX: C78.7 Secondary malignant neoplasm of liver and intrahepatic bile duct (principal); A41.9 Sepsis, unspecified organism; E44.0 Moderate protein-calorie malnutrition; Z68.33 Body mass index [BMI] 33.0-33.9, adult; Z20.828 Contact with and (suspected) exposure to other viral communicable diseases; I10 Essential (primary) hypertension; G62.9 Polyneuropathy, unspecified; F17.210 Nicotine dependence, cigarettes, uncomplicated; C50.911 Malignant neoplasm of unspecified site of right female breast; A59.01 Trichomonal vulvovaginitis; Z17.0 Estrogen receptor positive status [ER+]; Z90.49 Acquired absence of other specified parts of digestive tract; Z98.51 Tubal ligation status; Z79.899 Other long term (current) drug therapy; Z90.11 Acquired absence of right breast and nipple; Z79.811 Long term (current) use of aromatase inhibitors
CPT/HCPCS: 36415; 47000; 70553; 71045; 71260; 74177; 77012; 78306; 80048; 80053; 81003; 81015; 83605; 85025; 85610; 85730; 87040; 87086; 87480; 87491; 87510; 87591; 87635; 87660; 88307; 88341; 88342; 93005; 93010; 96365; 96367; A9503; A9579; J0696; J1650; J2001; J2250; J2270; J3010; J3370; J3490; Q9967; U0003

== ENCOUNTER 2020-03-10 10:06 | Outpatient (CLI) | payer OTHER ==
--- NOTE | 2020-03-10 19:32 | EKG ---
Test Reason : OUTPT Blood Pressure : / mmHG Vent. Rate : 094 BPM Atrial Rate : 094 BPM P-R Int : 136 ms QRS Dur : 084 ms QT Int : 374 ms P-R-T Axes : 045 007 037 degrees QTc Int : 467 ms Normal sinus rhythm possible left atrial abnormality Confirmed by DR. Camelia CARRASCO ([id number]) on 03/10/2020 7:32:22 PM Referred By: CECILLE Confirmed By:DR. Camelia CARRASCO
== END 2020-03-10 10:07 | disposition home or self-care (01) ==
LOC: EKG 10:06
PROVIDERS: ATTEND Internal Medicine Hematology & Oncology
DX: Z01.818 Encounter for other preprocedural examination (principal); Z08 Encounter for follow-up examination after completed treatment for malignant neoplasm; C50.919 Malignant neoplasm of unspecified site of unspecified female breast; T81.89XD Other complications of procedures, not elsewhere classified, subsequent encounter
CPT/HCPCS: 93005; 93010

== ENCOUNTER 2020-03-30 14:07 | Day surgery (SDC) | payer OTHER ==
[2020-03-30 14:21] VITALS: BP 162/106; TEMP 97.8
== END 2020-03-30 14:22 | disposition home or self-care (01) ==
LOC: ONC/OP 14:07
PROVIDERS: ATTEND Internal Medicine Hematology & Oncology
DX: Z51.11 Encounter for antineoplastic chemotherapy (principal); C50.411 Malignant neoplasm of upper-outer quadrant of right female breast
CPT/HCPCS: 96402; J9395

== ENCOUNTER 2020-04-13 13:43 | Day surgery (SDC) | payer OTHER ==
[2020-04-13 14:06] VITALS: BP 136/81; TEMP 98.3
== END 2020-04-13 14:07 | disposition home or self-care (01) ==
LOC: ONC/OP 13:43
PROVIDERS: ATTEND Internal Medicine Hematology & Oncology
DX: Z51.11 Encounter for antineoplastic chemotherapy (principal); C50.411 Malignant neoplasm of upper-outer quadrant of right female breast
CPT/HCPCS: 80053; 82248; 82728; 83540; 83550; 83615; 84100; 84550; 86300; 96402; J9395

== ENCOUNTER 2020-04-21 12:15 | Outpatient (CLI) | payer OTHER | END 2020-04-21 12:16 | disposition home or self-care (01) | LOC: EKG 12:15 | PROVIDERS: ATTEND Internal Medicine Hematology & Oncology | DX: Z01.818 Encounter for other preprocedural examination (principal); C50.411 Malignant neoplasm of upper-outer quadrant of right female breast | CPT/HCPCS: 93005; 93010 ==

== ENCOUNTER 2020-06-03 07:12 | Outpatient (CLI) | payer OTHER ==
--- NOTE | 2020-06-03 09:38 | CT ---
CT CHEST WITH CONTRAST CT ABDOMEN WITH CONTRAST CT PELVIS WITH CONTRAST: HISTORY: Right female breast cancer. COMPARISON: CT of the chest 02/27/2020. FINDINGS: Slight decreased confluence of the right middle lobe nodule which had previously measured 8 mm, now 5 mm. Small right layer pleural effusion has decreased. A 4 mm perifissural nodule is similar. Surgical clips in the right axilla. No pneumothorax. No consolidation. No new suspicious pulmonary nodule. Prior right mastectomy. Large mass within hepatic segment 8, 7, 5, and 6 measures up to 10 cm in greatest AP dimension, previ ously 13 cm. There is some subcapsular fat and retraction of the inferior margin of the mass. Portal vein is patent. No significant interval growth of the smaller peripheral hepatic masses. No retroperitoneal periaortic adenopathy. Multiple intramural fibroids of the uterus. Lytic mass within the left ileum extends into the sacrum crossing the SI joint as well as lateral cor tical erosion. IMPRESSION: 1. Interval slight size decrease of the right middle lobe pulmonary nodule and right hepatic lobe me tastasis. 2. Interval increase in cortical erosion of the left sacrum at the sacroiliac joint from the lytic m ass. 3. Similar numerous left hepatic lobe metastatic foci are relatively similar given the different pha ses of contrast. 4. No other acute inflammatory process within the abdomen or pelvis. 5. Fibroid uterus. POS: [facility]
--- NOTE | 2020-06-03 12:01 | NM ---
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 Metastatic disease. Restaging. COMPARISON: 02/27/2020. FINDINGS: Degenerative type uptake at the shoulders, sternoclavicular joints, and cervical spine. Upt kristen about the mandible with the appearance of a dental process. Symmetric uptake of the area of the sacroiliac joints on the posterior view, stable. A subtle focus o f photopenia within the left pelvic uptake is likely related to the destructive bone lesion detailed on CT exam. IMPRESSION : The left pelvic lesion is faintly visualized as a photopenic defect (given its lytic nature). Finding s are stable. No new active bone lesions are demonstrated.
[2020-06-03] MEDS ORDERED: Iopamidol 370 76% 100 ML VIAL ONE (14:14)
== END 2020-06-03 07:13 | disposition home or self-care (01) ==
LOC: CT 07:12
PROVIDERS: ATTEND Internal Medicine Hematology & Oncology
DX: C50.411 Malignant neoplasm of upper-outer quadrant of right female breast (principal); C78.7 Secondary malignant neoplasm of liver and intrahepatic bile duct; R91.8 Other nonspecific abnormal finding of lung field; D25.9 Leiomyoma of uterus, unspecified; M89.9 Disorder of bone, unspecified; M85.88 Other specified disorders of bone density and structure, other site
CPT/HCPCS: 71260; 74177; 78306; A9503; Q9967

== ENCOUNTER 2020-06-17 14:39 | Outpatient (CLI) | payer OTHER ==
--- NOTE | 2020-06-17 15:06 | BD ---
EXAM: Bone densitometry using DEXA HISTORY: 54 yo female. Screening for postmenopausal osteoporosis FINDINGS: L1--bone mineral density 0955 g/sq cm; T score -0.3 ; Z score -0.1 L2--bone mineral density 0.999 g/sq cm; T score -0.3 ; Z score 0.0 L3--bone mineral density 1.008 g/sq cm; T score -0.7 ; Z score -0.5 L4--bone mineral density 0.931 g/sq cm; T score -1.2 ; Z score -0.9 Total L1-L4--bone mineral density 0.973 g/sq cm; T score -0.7 ; Z score -0.4 Left femoral neck--bone mineral density0.694; T score -1.4 ; Z score -1.0 Total proximal left femur--bone mineral density 1.095; T score 1.3 ; Z score 1.0 There has been an interval reduction of 2.8% in the BMD of the lumbar spine and no change in the BMD of the proximal femur since the previous study of 05/23/2019. The 10 year fracture risk for a major osteoporotic fracture is 4.5% and for a hip fracture is 0.4%. IMPRESSION: Osteopenia
== END 2020-06-17 14:40 | disposition home or self-care (01) ==
LOC: BICMAMMO 14:39
PROVIDERS: ATTEND Internal Medicine Hematology & Oncology
DX: Z13.820 Encounter for screening for osteoporosis (principal); N95.8 Other specified menopausal and perimenopausal disorders; M85.89 Other specified disorders of bone density and structure, multiple sites
CPT/HCPCS: 77080

== ENCOUNTER 2020-07-07 14:15 | Day surgery (SDC) | payer OTHER | END 2020-07-07 15:07 | disposition home or self-care (01) | LOC: ONC/OP 14:15 | PROVIDERS: ATTEND Internal Medicine Hematology & Oncology | DX: Z51.11 Encounter for antineoplastic chemotherapy (principal); C50.411 Malignant neoplasm of upper-outer quadrant of right female breast | CPT/HCPCS: 80053; 82248; 83615; 84100; 84550; 86300; 96402; J9395 ==

== ENCOUNTER 2020-08-04 14:31 | Day surgery (SDC) | payer OTHER | END 2020-08-04 14:46 | disposition home or self-care (01) | LOC: ONC/OP 14:31 | PROVIDERS: ATTEND Internal Medicine Hematology & Oncology | DX: Z51.11 Encounter for antineoplastic chemotherapy (principal); C50.411 Malignant neoplasm of upper-outer quadrant of right female breast; Z79.818 Long term (current) use of other agents affecting estrogen receptors and estrogen levels | CPT/HCPCS: 36415; 80053; 82248; 83615; 84100; 84550; 86300; 96402; J9202; J9395 ==

== ENCOUNTER 2020-08-31 08:41 | Outpatient (CLI) | payer OTHER ==
[2020-08-31] MEDS ORDERED: Iopamidol 370 76% 100 ML VIAL ONE (10:31)
--- NOTE | 2020-08-31 12:17 | CT ---
CT OF CHEST AND ABDOMEN AND PELVIS PERFORMED WITH IV CONTRAST ENHANCEMENT: Date: 08/31/2020 HISTORY: Breast cancer. Lung nodules. Liver mets. Evaluation for response to treatment. History of right maste ctomy, cholecystectomy. COMPARISON: 06/03/2020 exam. FINDINGS: On the axial images, the right middle lobe pulmonary nodule measures 6-7 mm in size. It appears sligh tly larger as compared to the previous axial views, but when comparing the sagittal and coronal recon structed images, I do not see that there is a definite interval change. The difference in appearance is probably just positional related to slice position. Small intrafissural nodule along the major fis sure on the right axial image 22 is stable. No new nodules identified. Thoracic aorta is normal in caliber. There is a precarinal node that measures 9.0 mm, slightly larger than the previous exam, where it obtained a measurement more in the 7-8 mm range. There has also bee n a slight increase in size of the subcarinal nodes measuring 15 mm short axis dimension as compared to 12 mm, with slightly more prominent appearance to the nodes, particularly when viewed on coronal i mage #[id number]. Post right mastectomy changes are present. Surgical clips are seen in the right axilla. CT of abdomen was performed with contrast enhancement. The right hepatic lobe metastasis which measur ed approximately 10.0 cm in size is now somewhat less well-defined but does appear decreased measurin g 8.5 cm in overall dimension. I feel the changes within the left lobe are probably stable as compare d to the prior exam. The spleen and pancreas regions appear unremarkable. Gallbladder has been remove d. Right and left adrenal glands, and right and left kidneys are normal in size. There is no significant periaortic or mesenteric adenopathy. CT of pelvis was performed with contrast enhancement. Appendix is normal. No pelvic lymphadenopathy. Fibromatous changes of the uterus are again demonstrated. Left iliac have worsened. There is more bon y destructive change of the cortex and along the medial aspect of the lesion there is more soft tissu e changes associated with the cortical destruction. Also, changes of the left side of the sacrum is a lso progressed as compared to the prior study. Review of osseous structures show some worsening new subtle lytic bony foci. One within the left side of the sacrum, axial image 90, is increased. Also, a subtle lytic focus along the left side of the L 3 vertebral body is more prominent than on the previous exam. Subtly more prominent lucent focus also seen at L1 anteriorly, and at the T11 vertebral body, all concerning for some worsening lytic bone d isease. IMPRESSION: 1. Stable appearance to an approximately 6.0 mm right middle lobe pulmonary nodule and an intrafissu ral node along the right major fissure. 2. Some subtle increase in size of precarinal and subcarinal lymph nodes. 3. Interval decrease in size of the right lobe hepatic lesion. I feel that other lesions within the liver are stable. 4. Worsening lytic change involving the left sacrum at the SI joint and adjacent ilium. 5. Some subtle worsening lytic foci seen within the vertebral bodies as discussed above. 6. Fibromatous appearing uterus. POS: MICHELINE
--- NOTE | 2020-08-31 13:22 | NM ---
NUCLEAR MEDICINE BONE SCAN WHOLE BODY: (Skeletal scintigraphy) DATE: 08/31/2020 HISTORY: 55-year-old female with malignant neoplasm of upper outer quadrant of right female breast with bone m etastasis. Left hip pain. Follow-up. COMPARISON: Bone scan of 02/27/2020 TECHNIQUE: IV injection of technetium 99m-MDP: 32.8 mCi 3 hour delayed whole body skeletal scintigraphy in anterior and posterior views. FINDINGS: New moderate size focus of increased uptake at the right upper superolateral calvarium. Moderate sized region of mixed hyperintensity and photopenia involving left sacral ala and adjacent l eft ilium. New tiny focus of increased uptake at right costovertebral junction at mid thoracic spine, approximat maribeth T6 or T7. Typically, this type of appearance represents degenerative changes. However, it appears to be new since the prior study. Furthermore, because the CT of 08/31/2020 demonstrated what a re likely numerous tiny foci of metastatic lesions in the thoracic vertebrae, this may represent a small metastatic deposit. The other lesions seen on CT along the spine are not visible on this bone s can. The hips themselves are normal. At least mild degenerative changes at the shoulders, knees, and ankles. IMPRESSION: 1) moderately large osseous metastatic lesion with posttreatment changes at left sacral ala and adjac ent left iliac bone. 2) a new right-sided skull metastasis. 3) questionable tiny focal metastatic lesion versus degenerative change in the vicinity of one of the right mid thoracic costovertebral junctions.
== END 2020-08-31 08:42 | disposition home or self-care (01) ==
LOC: CT 08:41
PROVIDERS: ATTEND Internal Medicine Hematology & Oncology
DX: C50.411 Malignant neoplasm of upper-outer quadrant of right female breast (principal); C78.7 Secondary malignant neoplasm of liver and intrahepatic bile duct; R91.1 Solitary pulmonary nodule; C79.51 Secondary malignant neoplasm of bone; R59.0 Localized enlarged lymph nodes; K76.89 Other specified diseases of liver; R93.7 Abnormal findings on diagnostic imaging of other parts of musculoskeletal system
CPT/HCPCS: 71260; 74177; 78306; A9503

== ENCOUNTER 2020-09-02 13:53 | Day surgery (SDC) | payer OTHER ==
[2020-09-02 14:18] VITALS: BP 196/97; TEMP 97.8
== END 2020-09-02 14:05 | disposition home or self-care (01) ==
LOC: ONC/OP 13:53
PROVIDERS: ATTEND Internal Medicine Hematology & Oncology
DX: Z51.12 Encounter for antineoplastic immunotherapy (principal); C50.411 Malignant neoplasm of upper-outer quadrant of right female breast
CPT/HCPCS: 36415; 80053; 82248; 83615; 84100; 84550; 96402; J9395

== ENCOUNTER 2020-09-29 12:10 | Day surgery (SDC) | payer OTHER ==
[2020-09-29 14:01] VITALS: BP 131/67; TEMP 97.7
== END 2020-09-29 14:31 | disposition home or self-care (01) ==
LOC: ONC/OP 12:10
PROVIDERS: ATTEND Internal Medicine Hematology & Oncology
DX: Z51.12 Encounter for antineoplastic immunotherapy (principal); C50.411 Malignant neoplasm of upper-outer quadrant of right female breast
CPT/HCPCS: 36415; 80053; 82248; 83615; 84100; 84550; 96402; J9395

== ENCOUNTER 2020-10-24 07:46 | Inpatient (IN) | payer OTHER ==
[2020-10-24] MEDS ORDERED: Promethazine HCl 25 MG/ML VIAL ONE (08:09)
[2020-10-24] MEDS ORDERED: Piperacillin/Tazobactam 3.375 GM VIAL ONE (08:09)
[2020-10-24] MEDS ORDERED: Morphine 4 MG/ML VIAL ONE (08:09)
--- NOTE | 2020-10-24 09:15 | RAD ---
RADIOGRAPH CHEST 1 VIEW: DATE: 10/24/2020 TIME: 8:46 AM HISTORY: 55-year-old female with cough COMPARISON: 02/25/2020 FINDINGS: Again noted is the elevated right hemidiaphragm. There is a new finding of prominent subsegmental ate lectasis at the right lung base. There has been no other interval change. The rest of the lungs are clear. Left subclavian implantable vascular access port with distal tip at SVC/right atrial junction remains. No cardiomegaly or pneumothorax. Surgical clips at right axilla. Lateral costophrenic angles are not effaced. IMPRESSION: 1) new subsegmental atelectasis at right lung base. 2) no other acute findings. 3) chronically elevated right hemidiaphragm.
[2020-10-24 09:31] LABS: ALT (SGPT) 80 U/L (8-55); AST (SGOT) 289 U/L (5-34); Albumin 2.3 g/dL (3.5-5.0); Alkaline Phosphatase 248 U/L (40-110); Anion Gap 23 mmol/L (10-20); BUN (Urea Nitrogen) 35 mg/dL (9.8-20.1); Bilirubin, Total 9.2 mg/dL (0.2-1.2); Calc. Creatinine Clearance 0 mL/min (70-130); Calcium 8.2 mg/dL (7.8-10.44); Carbon Dioxide 17 mmol/L (22-29); Chloride 99 mmol/L (98-107); Globulin 4.7 g/dL (2.4-3.5); Lipase 59 U/L (8-78); Potassium 4.2 mmol/L (3.5-5.1); Sodium 135 mmol/L (136-145)
[2020-10-24 09:33] LABS: Glucose 57 mg/dL (70-105)
[2020-10-24] MEDS ORDERED: Dextrose 50% Abboject 50 ML SYRINGE ONE (09:34)
[2020-10-24 09:39] LABS: Band 6 % (5-11); Hemoglobin 10.3 g/dL (12.0-16.0); Lymphocytes 4 % (21-51); MDiff Complete? YES; Mean Corpuscular HGB CONC 32.3 g/dL (32.0-36.0); Mean Corpuscular Hemoglobin 32.7 pg (27.0-31.0); Mean Platelet Volume 10.9 fL (7.4-10.4); Monocytes 2 % (0-10); Neutrophil 88 % (42-75); Nucleated RBC 5 % (0); Platelet Count 99 thou/uL (130-400); Poikilocytosis SLIGHT = 6-15 cells (100X) (0-5/hpf); Polychromasia SLIGHT = 2-3 cells (100X) (0-2/hpf); RBC Distribution Width 16.7 % (11.5-14.5); Red Blood Cell (RBC) Count 3.16 mill/uL (4.20-5.40); Target Cells MODERATE= 6-15 cells (100X) (0-1/hpf); White Blood Cell (WBC) Count 5.4 thou/uL (4.8-10.8)
[2020-10-24] MEDS ORDERED: Iopamidol-370 76% 500 ML 1 ML ONE (10:08)
--- NOTE | 2020-10-24 11:14 | CT ---
EXAM: Abdomen and pelvic CT scan with contrast: HISTORY: Right upper quadrant pain, history of breast cancer COMPARISON: 02/25/2020 FINDINGS: Lungs:Patchy parenchymal changes particularly in the right lower lobe evidence for atelectasis with s ome right hemidiaphragm elevation. Small stable nodule in the region of the right middle lobe. Liver: Hepatomegaly with very extensive metastasis throughout the liver including what appears to be a large mass in the right lobe measuring 12 x 14 cm in size where it previously measured 7.5 x 8.5 cm. In addition there is very extensive metastatic infiltration throughout the remainder of the liver wit h enlargement and nodularity of the left lobe as well. Gallbladder:Status post cholecystectomy. Common bile duct:Normal Pancreas:Visualized pancreas is unremarkable. There appears to be extensive diffuse edematous changes involving the stomach with marked thickening of the stomach wall up to 1.2 cm. Extensive ascites throughout the abdomen and pelvis. Spleen:Unremarkable. Adrenal glands:Unremarkable. Kidneys:No renal calculus or acute obstruction. No solid or cystic renal mass. No evidence for bowel obstruction. There does appear to be some abnormal wall thickening involving th e right colon and cecum, of uncertain etiology. Aorta:No evidence for aneurysm. Spine:Numerous lytic bone metastasis are noted as well as extensive metastasis involving the pelvis i ncluding a large destructive lesion in the left lateral sacrum and adjacent ilium measuring up to 6 cm in length where it previously measured 4.[address] evidence for acute appendicitis. The urinary bladder is unremarkable. Reproductive system:Multiple intrauterine fibroids. Hernias:Small hiatal hernia. Bilateral fat-containing inguinal hernias with some fluid within the upp er left inguinal hernia Extensive ascites. IMPRESSION: Extensive metastasis with marked worsening of the liver metastasis. Worsening bone metastasis. Developing extensive ascites. Very markedly severe edema and thickening of the wall of the stomach, of uncertain etiology. Focal thickening of the wall of the right colon and cecum.
[2020-10-24 11:20] LABS: Actual Bicarbonate (HCO3v) 16 mEq/L (22-28); Base Excess -6.5 mEq/L (-2.0 to +3.0); Calcium, Ionized (venous) 0.92 mmol/L (1.16-1.32); Chloride (VBG) 102 mmol/L (98-106); Hemoglobin (Hb) 11.4 g/dL (11.7-16.0); Sodium 132.9 mmol/L (133-146); pH (venous) 7.45 (7.32-7.43)
[2020-10-24] MEDS ORDERED: Sodium Chloride 0.9% 100 ML ONE (12:01)
[2020-10-24] MEDS ORDERED: Vancomycin 1 GM/200 ML BAG ONE (12:01)
[2020-10-24 12:25] LABS: Lactic Acid 9.6 mmol/L (0.5-2.2)
[2020-10-24 13:09] LABS: Bacteria/HPF None Seen HPF (None Seen); Bilirubin 1+ (Negative); Blood, Urine Negative (Negative); Clarity Clear (Clear); Glucose, Urine (Dipstick) Normal (Negative); Ketone, Urine Negative (Negative); Leukocyte Negative Leu/uL (Negative); Nitrite Negative (Negative); Protein, Urine (Dipstick) 30 mg/dL (Neg-Trace); RBC/HPF 0-3 HPF (0-3); Specific Gravity, Urine 1.042 (1.002-1.036); Squamous Epithelial 0-3 HPF (0-3); WBC/HPF 0-3 HPF (0-3); pH, Urine 5.5 (5.0-9.0)
[2020-10-24] MEDS ORDERED: Morphine 4 MG/ML VIAL SLOW IVP PRN (14:58)
[2020-10-24] MEDS ORDERED: Ondansetron ODT 4 MG TAB SL PRN (15:00)
[2020-10-24] MEDS ORDERED: Sodium Chloride 0.9% 1,000 ML IV SCH ×2 (15:00→21:00)
[2020-10-24] MEDS ORDERED: Piperacillin/Tazobactam 3.375 GM in Sodium Chloride 0.9% 100 ML IVPB SCH ×2 (15:00→20:00)
[2020-10-24] MEDS ORDERED: Ondansetron PF 4 MG/2 ML Vial IVP PRN ×2 (15:00→20:45)
[2020-10-24 15:13] VITALS: BMI 30.7
--- NOTE | 2020-10-24 20:38 | PDOC.HHP ---
Hospitalist HPI Hematemesis, abdominal pain History of Present Illness: This 55-year-old female who presented to the emergency room with hematemesis. She states that she vomited approximately 1 cup of blood. She is unable to describe the color of the blood. She also reports abdominal pain that started today. She is unable to give any history or any further description of her abdominal pain. She is unable to state when her last bowel movement was. She denies any fevers, chills, cough or shortness of breath. The patient does have history of breast cancer with metastases and is currently on chemotherapy. She is only able to answer one question at a time and falls back asleep ED Course: When the patient presented to the ER, she had a blood pressure of 148/58, heart rate 113, respiratory rate 18, temp 97.9 and O2 sat of 98% on room air. Labs showed normal WBC 5.4, hemoglobin 10.3, sodium of 132, AST of 289, ALT 80, ALP 248, bilirubin of 9.2. Chest x-ray showed atelectasis. CT abdomen showed extensive metastases with marked worsening of liver metastases, worsening bone metastases, extensive ascites, severe edema and thickening of the wall of the stomach and thickening of the wall of the right colon and the cecum. She was given vancomycin, Zosyn, 2 L of fluid, 4 of morphine, 2.5 of Phenergan and admitted for further work-up. Allergies/Adverse Reactions: Allergy/AdvReac Type Severity Reaction Status Date / Time No Known Allergies Allergy Verified 10/24/20 16:49 Home Medications: Medication Instructions Recorded Confirmed Type cloNIDine [Catapres] 0.2 mg PO HS 12/13/18 10/24/20 History hydrALAZINE HCl 100 mg PO TID 12/13/18 10/24/20 History Amitriptyline HCl 50 mg PO HS 02/25/20 10/24/20 History Anastrozole 1 mg PO DAILY 02/25/20 10/24/20 History Sennosides/Docusate Sodium 2 tab PO BID PRN #60 tab 02/28/20 10/24/20 Rx [Senokot S] Acetaminophen [Tylenol] 650 mg PO Q6HR PRN 10/24/20 10/24/20 History Cetirizine HCl [Zyrtec] 10 mg PO DAILY 10/24/20 10/24/20 History Cholecalciferol (Vitamin D3) 5,000 unit PO DAILY 10/24/20 10/24/20 History [Vitamin D3] Losartan Potassium 50 mg PO DAILY 10/24/20 10/24/20 History Ondansetron [Zofran ODT] 8 mg PO Q8HR PRN 10/24/20 10/24/20 History tiZANidine HCl [Tizanidine HCl] 4 mg PO TID PRN 10/24/20 10/24/20 History traMADol HCl [Tramadol HCl] 25 mg PO TID PRN 10/24/20 10/24/20 History Past History: PMHx: History of breast cancer with metastases,, hypertension,, neuropathy PSHx: Cholecystectomy, ostectomy of the right breast, tubal ligation FHx: Mother and sibling had cancer Social: Patient drinks socially once a month. She denies tobacco use. Hospitalist HPI ROS Constitutional: denies: fever, chills Eyes: denies: pain, vision change ENT: denies: ear pain, ear discharge Respiratory: denies: cough, dry, shortness of breath Cardiovascular: denies: chest pain, palpitations, orthopnea Gastrointestinal: reports: abdominal pain Genitourinary: denies: dysuria, frequency Musculoskeletal: denies: neck pain, shoulder pain Skin: denies: rash, lesions Neurological: denies: weakness, numbness, incoordination Hospitalist Exam Vitals: Vital Signs (12 hours) Temp Pulse Resp BP Pulse Ox 10/24/20 19:28 97.6 F 107 H 14 131/78 100 10/24/20 16:00 97.7 F 109 H 20 133/68 95 10/24/20 14:03 97.5 F L 113 H 20 132/72 96 Weight Weight 190 lb 2 oz General Appearance: NAD, awake alert Eye: PERRL, anicteric sclera ENT: normocephalic atraumatic, no oropharyngeal lesions Neck: no JVD Heart: RRR, no murmur, no gallops, no rubs Respiratory: CTAB, no wheezes, no rales, no ronchi Gastrointestinal: soft Gastrointestinal - other findings: firm to palpation, diminished bowel sounds. Diffuse mild tenderness Extremities: no cyanosis, no clubbing, no edema Skin: normal turgor, no lesions, no rashes Neurological: cranial nerve grossly intact, normal sensation to touch, no weakness Musculoskeletal: normal tone, normal strength, no muscle wasting Psychiatric: normal affect, normal behavior, A&O x 3 Hospitalist Results Result Diagrams: 10/24/20 08:55 10/24/20 08:55 Lab results: Laboratory Last Values WBC 5.4 thou/uL (4.8-10.8) 10/24/20 08:55 RBC 3.16 mill/uL (4.20-5.40) L 10/24/20 08:55 Hgb 10.3 g/dL (12.0-16.0) L 10/24/20 08:55 Hct 32.0 % (36.0-47.0) L 10/24/20 08:55 MCV 101.0 fL (78.0-98.0) H 10/24/20 08:55 MCH 32.7 pg (27.0-31.0) H 10/24/20 08:55 MCHC 32.3 g/dL (32.0-36.0) 10/24/20 08:55 RDW 16.7 % (11.5-14.5) H 10/24/20 08:55 Plt Count 99 thou/uL (130-400) L 10/24/20 08:55 MPV 10.9 fL (7.4-10.4) H 10/24/20 08:55 Neutrophils % (Manual) 88 % (42-75) H 10/24/20 08:55 Band Neuts % (Manual) 6 % (5-11) 10/24/20 08:55 Lymphocytes % (Manual) 4 % (21-51) L 10/24/20 08:55 Monocytes % (Manual) 2 % (0-10) 10/24/20 08:55 Nucleated RBCs # (Man) 5 % (0) H 10/24/20 08:55 Polychromasia SLIGHT = 2-3 cells (100X) (0-2/hpf) 10/24/20 08:55 Poikilocytosis SLIGHT = 6-15 cells (100X) (0-5/hpf) 10/24/20 08:55 Target Cells MODERATE= 6-15 cells (100X) (0-1/hpf) H 10/24/20 08:55 VBG pH 7.45 (7.32-7.43) H 10/24/20 10:25 VBG pCO2 23.3 mmHg (42.0-51.0) L* 10/24/20 10:25 VBG pO2 145.6 mmHg (35.0-45.0) H 10/24/20 10:25 VBG HCO3 16 mEq/L (22-28) L 10/24/20 10:25 VBG O2 Sat (Giovani) 99.1 % (60-85) H 10/24/20 10:25 VBG Base Excess -6.5 mEq/L (-2.0 to +3.0) L 10/24/20 10:25 VBG Hematocrit 34.0 % (36.0-47.0) L 10/24/20 10:25 VBG Hemoglobin 11.4 g/dL (11.7-16.0) L 10/24/20 10:25 VBG Carboxyhemoglobin 6.6 gm% (0.5-1.5) H 10/24/20 10:25 VBG Methemoglobin 0.3 % (0-1.5) 10/24/20 10:25 VBG Ionized Calcium 0.92 mmol/L (1.16-1.32) L 10/24/20 10:25 Sodium 135 mmol/L (136-145) L 10/24/20 08:55 Whole Bld Sodium 132.9 mmol/L (133-146) L 10/24/20 10:25 Potassium 4.2 mmol/L (3.5-5.1) 10/24/20 08:55 Whole Bld Potassium 4.30 mmol/L (3.70-5.30) 10/24/20 10:25 Chloride 99 mmol/L (98-107) 10/24/20 08:55 Whole Bld Chloride 102 mmol/L (98-106) 10/24/20 10:25 Carbon Dioxide 17 mmol/L (22-29) L 10/24/20 08:55 Anion Gap 23 mmol/L (10-20) H 10/24/20 08:55 BUN 35 mg/dL (9.8-20.1) H 10/24/20 08:55 Creatinine 1.96 mg/dL (0.6-1.1) H 10/24/20 08:55 Estimated GFR (MDRD) 32 10/24/20 08:55 Glucose 57 mg/dL (70-105) L* 10/24/20 08:55 POC Glucose 141 mg/dL (70-100) H 10/24/20 13:55 Lactic Acid 9.6 mmol/L (0.5-2.2) H* 10/24/20 11:48 Calcium 8.2 mg/dL (7.8-10.44) 10/24/20 08:55 Total Bilirubin 9.2 mg/dL (0.2-1.2) H 10/24/20 08:55 AST 289 U/L (5-34) H 10/24/20 08:55 ALT 80 U/L (8-55) H 10/24/20 08:55 Alkaline Phosphatase 248 U/L (40-110) H 10/24/20 08:55 Troponin I 0.026 ng/mL (< 0.028) 10/24/20 08:55 Serum Total Protein 7.0 g/dL (6.0-8.3) 10/24/20 08:55 Albumin 2.3 g/dL (3.5-5.0) L 10/24/20 08:55 Globulin 4.7 g/dL (2.4-3.5) H 10/24/20 08:55 Albumin/Globulin Ratio 0.5 g/dL (1.2-2.2) L 10/24/20 08:55 Lipase 59 U/L (8-78) 10/24/20 08:55 Urine Color Dark-Yellow (Yellow) 10/24/20 12:43 Urine Clarity Clear (Clear) 10/24/20 12:43 Urine pH 5.5 (5.0-9.0) 10/24/20 12:43 Ur Specific Marianna 1.042 (1.002-1.036) H 10/24/20 12:43 Urine Protein 30 mg/dL (Neg-Trace) A 10/24/20 12:43 Urine Glucose (UA) Normal mg/dL (Negative) 10/24/20 12:43 Urine Ketones Negative mg/dL (Negative) 10/24/20 12:43 Urine Blood Negative (Negative) 10/24/20 12:43 Urine Nitrite Negative (Negative) 10/24/20 12:43 Urine Bilirubin 1+ (Negative) A 10/24/20 12:43 Urine Urobilinogen 2.0 mg/dL (Less than 2) A 10/24/20 12:43 Ur Leukocyte Esterase Negative Angélica/uL (Negative) 10/24/20 12:43 Urine RBC 0-3 HPF (0-3) 10/24/20 12:43 Urine WBC 0-3 HPF (0-3) 10/24/20 12:43 Ur Squamous Epith Cells 0-3 HPF (0-3) 10/24/20 12:43 Urine Bacteria None Seen HPF (None Seen) 10/24/20 12:43 Hyaline Casts 7-10 LPF (0-3) A 10/24/20 12:43 Granular Casts 0-3 LPF (None Seen) A 10/24/20 12:43 Hospitalist H&P A/P Plan: Chest x-ray: atelectasis. CT abdomen: extensive metastases with marked worsening of liver metastases, worsening bone metastases, extensive ascites, severe edema and thickening of the wall of the stomach and thickening of the wall of the right colon and the cecum. There is a 55-year-old female with a past medical history of disease who presented to the emergency room with hematemesis, abdominal pain, found to have a lactate of 9. CT abdomen showed extensive metastases #Hematemesis #Abdominal pain - possibly from GI bleeding versus worsening liver metastases/ascites #Transaminitis #Extensive ascites - had one episode of hemoptysis, but no further. Hemoglobin is 10.9, will monitor. Start protonix drip . Obtain GI consult in the morning - given lactic acid of 9.6, will continue zosyn. Given extensive ascites, will order paracentesis in the morning to evaluate for SBP vs malignant ascites . AST - continue morphine prn for pain and zofran pn #Acute encephalopathy - possibly hepatic - has elevated LFTS with bilirubin of 9 and extensive ascites. Will check ammonia level. Blood and urine cultures pending, chest Xray unremarkable Breast cancer with liver and bone metastases - will consult oncology. Continue anastrazole Hyponatremia - sodium 132, will recheck tomorrow after fluids Acute Kidney Injury - possibly dehydration vs hepatorenal syndrome - creatinine up to 1.96. Will continue IV fluids for nwo Hypertension - hold home meds Hypoglycemia - blood sugar was 57. Will order D5NS since patient is not eating - Macrocytic anemia - Hb 10, MCV 100. Will check TSH, B12, folate. Could also be from hematemesis
[2020-10-24] MEDS ORDERED: Morphine 2 MG/ML VIAL SLOW IVP PRN (20:45)
[2020-10-24] MEDS ORDERED: Pantoprazole 80 MG in Sodium Chloride 0.9% 100 ML IVPB SCH (21:15)
[2020-10-24 21:27] LABS: Lactic Acid 4.9 mmol/L (0.5-2.2)
[2020-10-24] MEDS: Dextrose 5 % And 0.9 % NaCl 1,000 ML IV SCH (22:04)
[2020-10-25] MEDS: Piperacillin/Tazobactam 3.375 GM in Sodium Chloride 0.9% 100 ML IVPB SCH ×2 (02:39→09:49)
[2020-10-25 05:04] LABS: Lactic Acid 4.1 mmol/L (0.5-2.2)
[2020-10-25 05:06] LABS: Anion Gap 18 mmol/L (10-20); BUN (Urea Nitrogen) 45 mg/dL (9.8-20.1); Calc. Creatinine Clearance 43 mL/min (70-130); Calcium 8.2 mg/dL (7.8-10.44); Carbon Dioxide 21 mmol/L (22-29); Chloride 102 mmol/L (98-107); Glucose 101 mg/dL (70-105); Potassium 4.8 mmol/L (3.5-5.1); Sodium 136 mmol/L (136-145)
[2020-10-25 05:15] LABS: Hemoglobin 10.3 g/dL (12.0-16.0); Mean Corpuscular HGB CONC 33.5 g/dL (32.0-36.0); Mean Corpuscular Hemoglobin 34.5 pg (27.0-31.0); Mean Platelet Volume 10.9 fL (7.4-10.4); Platelet Count 89 thou/uL (130-400); RBC Distribution Width 17.2 % (11.5-14.5); Red Blood Cell (RBC) Count 2.98 mill/uL (4.20-5.40); White Blood Cell (WBC) Count 5.1 thou/uL (4.8-10.8)
[2020-10-25 07:45] LABS: INR-International Normal Ratio 2.4
[2020-10-25 07:46] LABS: PTT 40.5 sec (22.9-36.1)
[2020-10-25] MEDS ORDERED: Pantoprazole 80 MG, Admixture Fee 1 EACH in Sodium Chloride 0.9% 100 ML IVPB SCH (08:30)
--- NOTE | 2020-10-25 08:47 | ULT ---
EXAM: US Abdomen Limited CLINICAL HISTORY: Evaluate for ascites. Extensive ascites. COMPARISON: None. FINDINGS: Targeted imaging of all 4 quadrants of the abdomen demonstrates a small amount of ascites. The amount of ascites does not warrant paracentesis at this time. IMPRESSION: Small amount of ascites.
[2020-10-25] MEDS ORDERED: Phytonadione 10 MG/ML AMP SC SCH (12:45)
[2020-10-25] MEDS: Anastrozole 1 MG TAB PO SCH (13:03)
[2020-10-25] MEDS: Phytonadione 10 MG/ML AMP SC SCH (13:04)
--- NOTE | 2020-10-25 14:03 | CON ---
DATE OF CONSULTATION: 10/25/2020 SUBJECTIVE: Ms. Washington is a 55-year-old woman with breast cancer, who has been followed by Oncology, Dr. Hernandez. She came to the emergency room yesterday with nausea and vomiting. After multiple episodes of retching, she did vomit a cup of red blood. She has had no bowel movements since admission. Her nausea is better today. She has been confused. She vomited the red blood once and then reports some coffee-ground appearing vomit once. Again, she is a little confused about the timing, consistent with hepatic encephalopathy. She states that she was taken off a chemo regimen recently by Dr. Hernandez due to some abnormal blood counts. PAST MEDICAL HISTORY: 1. Metastatic breast cancer. 2. Hypertension. 3. Neuropathy. PAST SURGICAL HISTORY: 1. Cholecystectomy. 2. Mastectomy. 3. Tubal ligation. FAMILY HISTORY: Positive for throat cancer in her mother. SOCIAL HISTORY: She drinks beer around once per month. No history of heavy alcohol use or drug use in the past. ALLERGIES: NO KNOWN DRUG ALLERGIES. MEDICATIONS: Prior to admission; 1. Hydralazine. 2. Clonidine. 3. Losartan. 4. Cetirizine. 5. Vitamin D. 6. Anastrozole. 7. Amitriptyline. REVIEW OF SYSTEMS: Negative x10 systems reviewed except as stated in history of present illness. PHYSICAL EXAMINATION: VITAL SIGNS: Temperature is 97.7, pulse 113, blood pressure 141/76. GENERAL: She is in no acute distress. She is oriented to her name and place and year, but still confused and goes inconsistent history regarding timing of her symptoms and degree of her symptoms. HEENT: Her eyes have scleral icterus. Oropharynx is clear without lesions. No cervical or supraclavicular lymphadenopathy. LUNGS: Clear to auscultation bilaterally. HEART: Tachycardic. S1 and S2. A 3/6 systolic murmur at the right upper sternal border and left lower sternal border. EXTREMITIES: 1+ lower extremity edema. RECTAL: A scant amount of brown stool in the rectal vault. NEUROLOGIC: She has asterixis. LABORATORY DATA: White blood cell count 5.1, hemoglobin 10.3, and platelets 89. INR 2.4 and creatinine 2.0. Lactate was 9.6 on presentation, down to 4.1. IMAGING STUDIES: She had a CT scan of the abdomen and pelvis, that showed enlargement of her liver masses and extensive liver metastases. She has ascites, which by ultrasound was inadequate to tap. She has anasarca and also thickening of the bowel wall. IMPRESSION: 1. Liver failure secondary to extensive metastatic disease. It is possible that she has some underlying cirrhosis to begin with, but we do not have a history consistent with that prior to now. At this point, her INR is increased to 2.4, bilirubin is 9.2, albumin is 2.3, AST 289, ALT 80, and alkaline phosphatase 248. She has signs of portal hypertension with thrombocytopenia with a platelet count of 89. However, the spleen was unremarkable in size. She has hepatic encephalopathy with asterixis on physical exam. 2. Hepatic encephalopathy. Again, she has asterixis. Her ammonia is elevated. We will start lactulose scheduled. 3. Hematemesis. Her symptoms sound most consistent with a Janessa-Waldrop tear. She had one episode of red bleeding after retching. She has light brown stool in the rectal vault by exam; however, this is only a scant amount. No evidence of ongoing significant bleeding at this point. Her hemoglobin appears stable overall. 4. Metastatic breast cancer. Apparently, her disease is advancing significantly and she has mets to her bones and extensive mets over her liver. Her options for ongoing treatment given the liver failure may be limited. Oncology has been consulted. 5. Anasarca. The bowel wall thickening and ascites are secondary to the liver involvement of her tumor. RECOMMENDATIONS: 1. Proton pump inhibitor. 2. Lactulose. 3. We will give a dose of vitamin K. 4. I would hold off endoscopy at this point. 5. She might ultimately require more of a palliative approach. Treatment goals will be deferred to Dr. Hernandez. Job ID: [id number]
[2020-10-25 16:20] LABS: SARS-CoV-2 PCR by NAA Not Detected (NotDetected)
--- NOTE | 2020-10-25 16:52 | PDOC.HOSPP ---
- Subjective Encounter Date: 10/25/20 Encounter Time: 16:51 Subjective: Ms. Washington was seen today in follow-up of GI bleed and hepatic encephalopathy. She was a bit drowsy. Her sister is at bedside. - Objective Vital Signs & Weight: Vital Signs (12 hours) Temp Pulse Resp BP Pulse Ox 10/25/20 16:00 97.7 F 111 H 20 176/93 H 100 10/25/20 08:00 97.7 F 113 H 20 141/76 H 96 Weight Admit Weight 190 lb 2 oz Weight 190 lb 2 oz I&O: 10/24/20 10/25/20 10/26/20 06:59 06:59 06:59 Intake Total 2886 Output Total 500 Balance 2386 Result Diagrams: 10/25/20 04:13 10/25/20 04:13 Additional Labs: Accuchecks 10/24/20 10/24/20 11:30 09:39 POC Glucose 134 H 56 L* Hospitalist ROS - Medication Medications: Active Medications Generic Name Dose Route Start Last Admin Trade Name Lamontq PRN Reason Stop Dose Admin Anastrozole 1 mg 10/25/20 09:00 10/25/20 13:03 Anastrozole 1 Mg Tab PO 1 mg DAILY PATY Administration Dextrose/Sodium Chloride 1,000 mls @ 50 mls/hr 10/24/20 21:30 10/24/20 22:04 D5 0.9% Ns IV 1,000 mls .Q20H PATY Administration Phytonadione 10 mg 10/25/20 13:00 10/25/20 13:04 Phytonadione 10 Mg/Ml Amp SC 10/27/20 13:01 10 mg 1300 PATY Administration Hospitalist Exam Vitals: Vital Signs (12 hours) Temp Pulse Resp BP Pulse Ox 10/25/20 16:00 97.7 F 111 H 20 176/93 H 100 10/25/20 08:00 97.7 F 113 H 20 141/76 H 96 Weight Admit Weight 190 lb 2 oz Weight 190 lb 2 oz General Appearance: NAD, awake alert Eye: PERRL, scleral icterus Heart: RRR, no murmur, no gallops, no rubs, normal peripheral pulses Respiratory: CTAB, no wheezes, no rales, no ronchi, normal chest expansion Gastrointestinal: soft (distended) Extremities: no cyanosis, no edema Hosp A/P (1) GI bleed Code(s): K92.2 - GASTROINTESTINAL HEMORRHAGE, UNSPECIFIED Status: Acute (2) Hepatic encephalopathy Code(s): K72.90 - HEPATIC FAILURE, UNSPECIFIED WITHOUT COMA Status: Acute (3) Breast cancer Status: Acute (4) Hyponatremia Code(s): E87.1 - HYPO-OSMOLALITY AND HYPONATREMIA Status: Acute - Plan * GI Bleed- Gastroenterology evaluation appreciated- She likely has a Janessa Waldrop tear, as the cuase, and exacerbated by the coagulopathy * Continue PPI and Vitamin K has been given * Transaminitis- due to metastatic disease to the liver, and she could have some underlying cirrhosis * Hepatic encephalopathy- due to the above * Hyponatremia- resolved * Breast Cancer- this is widely metastatic- discussed with Oncology- she may be considering Hospice
--- NOTE | 2020-10-25 17:21 | CON ---
DATE OF CONSULTATION: REASON FOR CONSULTATION: Metastatic breast cancer. HISTORY OF PRESENT ILLNESS: Ms. Washington is a pleasant 55-year-old female who was diagnosed with stage IIIB ER positive, MD negative, HER-2 negative breast cancer in 2016. She was treated with neoadjuvant Adriamycin, Cytoxan, and Taxol. She then underwent a mastectomy and had radiation. She continued adjuvant Xeloda with Zoladex and AI. She unfortunately had recurrence of disease in her liver, lung, and bone and was started on Kisqali in February. She also recently completed a dose of palliative radiation to her left ilium for pain. She had a mixed response on her last CT scan after 3 months of treatment. Recently, she had radiation to her left ilium for pain. She saw Dr. Hernandez on 09/29. She was neutropenic from Kisqali and it was held. She presented to the emergency room yesterday with nausea and vomiting. She had a repeat CT scan, which showed a large mass in the right lobe, measuring 12 x 14 cm. There is extensive bone metastasis, severe edema, thickening of the wall in stomach, and focal thickening of the right colon and cecum. Her CA-27-29 was checked on 10/19 and increased from 400 to 1300, consistent with disease progression. The patient was seen at bedside with her sister present. The patient is confused. Her ammonia is elevated at 89. She has been seen by GI and started on lactulose. PAST MEDICAL HISTORY: 1. Metastatic breast cancer with liver, lung, and bone mets. 2. Hypertension. 3. History of iron-deficient anemia. PAST SURGICAL HISTORY: 1. Mastectomy. 2. Tubal ligation. 3. MediPort placement. 4. Cholecystectomy. ALLERGIES: NO KNOWN DRUG ALLERGIES. HOME MEDICATIONS: 1. Tylenol No. 3. 2. Amitriptyline. 3. Anastrazole. 4. Clonidine. 5. Hydralazine. 6. Losartan. 7. Kisqali. 8. Trazodone. FAMILY HISTORY: Mother has throat cancer. SOCIAL HISTORY: Single, 4 children. Lives with family. [id number] history of smoking, quit in 02/2018. REVIEW OF SYSTEMS: Unable to obtain secondary to encephalopathy. PHYSICAL EXAMINATION: VITAL SIGNS: Temperature is 97.7, pulse is 113, respiratory rate 20, blood pressure is 141/76, and she is 96% on room air. GENERAL: A well-developed, well-nourished female, in no acute distress. HEENT: Normocephalic and atraumatic. NECK: Supple. CV: Regular rate and rhythm. She is tachycardic. LUNGS: Clear anterior. ABDOMEN: Distended and firm. EXTREMITIES: No clubbing or cyanosis. NEUROLOGIC: The patient is confused. PERTINENT LABORATORY DATA AND X-RAYS: WBCs 5.1, hemoglobin 10.3, hematocrit 30.6, and platelet count is 89,000. PT is 27, INR is 2.4, and PTT is 40.5. Sodium 136, potassium 4.8, chloride 102, CO2 is 21, BUN is 45, creatinine 2, lactic acid is 4.1, and calcium 8.4. Ammonia 89. Bilirubin 9.2, AST is 289, ALT is 80, and alkaline phosphatase is 248. Serum total protein is 7, albumin 2.3, globulin 4.7, and lipase 59. ASSESSMENT: 1. Metastatic breast cancer with recent progression in the liver. 2. Liver failure secondary to extensive metastatic disease. 3. Hepatic encephalopathy. DISCUSSION: The case has been discussed with Dr. Hernandez. The patient is currently encephalopathic. I spoke with her sister at bedside and updated her on the CT findings. We discussed that she has significant progression on treatment. She has liver failure and coagulopathy with an elevated INR of 2.4. She has been seen by GI and started on lactulose. Hopefully, her encephalopathy will improve in the next 24 hours. I did discuss advanced directives and hospice with sister. Will discuss further with the patient if her mental status improves, continue supportive care at this time. Thank you for the consult. Job ID: [id number]
[2020-10-25] MEDS: Dextrose 5 % And 0.9 % NaCl 1,000 ML IV SCH (18:35)
[2020-10-25] MEDS ORDERED: Promethazine HCl 25 MG in Sodium Chloride 0.9% 50 ML IVPB PRN (19:00)
[2020-10-26] MEDS ORDERED: Promethazine HCl 12.5 MG in Sodium Chloride 0.9% 50 ML IVPB PRN (01:18)
[2020-10-26 02:10] LABS: Actual Bicarbonate (HCO3a) 17.7 mEq/L (22-28); Base Excess (BEa) -5.3 mEq/L (-2.0 to +3.0); Calcium, Ionized (arterial) 1.13 mmol/L (1.12-1.30); Carboxyhemoglobin (COHb) 0.7 gm% (0.0-3.0); Hemoglobin (Hb) 8.5 g/dL (12.0-16.0); O2 Tension (PaO2), arterial 109.5 mmHg (80.0-100.0); Potassium - ABG Lab 4.09 mmol/L (3.70-5.30); pH, Arterial 7.45 (7.35-7.45)
[2020-10-26 02:13] LABS: CO2 Tension 25.8 mmHg (35.0-45.0)
[2020-10-26 02:14] LABS: Puncture Site LRA
[2020-10-26 02:26] LABS: Anion Gap 19 mmol/L (10-20); BUN (Urea Nitrogen) 61 mg/dL (9.8-20.1); Calc. Creatinine Clearance 38 mL/min (70-130); Calcium 8.8 mg/dL (7.8-10.44); Carbon Dioxide 18 mmol/L (22-29); Chloride 105 mmol/L (98-107); Glucose 160 mg/dL (70-105); Lactic Acid 6.5 mmol/L (0.5-2.2); Magnesium 2.5 mg/dL (1.6-2.6); Potassium 4.2 mmol/L (3.5-5.1); Sodium 138 mmol/L (136-145)
[2020-10-26 02:36] LABS: Band 1 % (5-11); Hemoglobin 8.5 g/dL (12.0-16.0); Lymphocytes 7 % (21-51); MDiff Complete? YES; Macrocytosis SLIGHT = 6-15 cells (100X) (0-5/hpf); Mean Corpuscular HGB CONC 32.7 g/dL (32.0-36.0); Mean Corpuscular Hemoglobin 33.4 pg (27.0-31.0); Mean Platelet Volume 10.9 fL (7.4-10.4); Monocytes 3 % (0-10); Neutrophil 89 % (42-75); Platelet Count 88 thou/uL (130-400); Platelet Morphology Comment Appears Decreased; RBC Distribution Width 17.8 % (11.5-14.5); Red Blood Cell (RBC) Count 2.55 mill/uL (4.20-5.40); Target Cells MODERATE= 6-15 cells (100X) (0-1/hpf); White Blood Cell (WBC) Count 4.5 thou/uL (4.8-10.8)
--- NOTE | 2020-10-26 03:09 | PDOC.EVN ---
Event Note - Event Note Event Note: Notified by RN, patient with AMS. Responsive to verbal stimuli, but lethargic. CT Head and ABG ordered, as well as repeat labs. Labs notable for lactic acidosis. Ammonia level normal. Patient seen and examined by Dr. Brito who advised addition of Vancomycin (pharmacy to dose). Repeat CXR, UA/UCx and Blood cultures ordered as well as CT A/P without contrast per discussion with Dr. Brito. IV fluids ordered. CT head report has come back and shows new expansile lytic changes in right frontal and sphenoid bones with new small extra-axial CSF attenuation collection along the right frontal region ?mass or infection. Per Dr. Brito, Neuro & ID consults placed.
[2020-10-26 03:26] LABS: Bacteria/HPF None Seen HPF (None Seen); Bilirubin 1+ (Negative); Blood, Urine Negative (Negative); Clarity Turbid (Clear); Glucose, Urine (Dipstick) Normal (Negative); Ketone, Urine Negative (Negative); Leukocyte Negative Leu/uL (Negative); Nitrite Negative (Negative); Protein, Urine (Dipstick) 30 mg/dL (Neg-Trace); RBC/HPF 0-3 HPF (0-3); Specific Gravity, Urine 1.026 (1.002-1.036); Squamous Epithelial 0-3 HPF (0-3); WBC/HPF 0-3 HPF (0-3); pH, Urine 5.5 (5.0-9.0)
[2020-10-26 03:27] LABS: Urine Culture Reflex No No
[2020-10-26] MEDS: Sodium Chloride 0.9% 1,000 ML IV SCH ×2 (03:41→13:36)
[2020-10-26] MEDS ORDERED: Vancomycin HCl 750 MG in Sodium Chloride 0.9% 250 ML 250 ML IVPB SCH (05:00)
--- NOTE | 2020-10-26 07:34 | CT ---
PRELIMINARY REPORT/[facility]/EMERGENCY AFTER HOURS PROCEDURE EXAM: CT Head Without Intravenous Contrast. CLINICAL HISTORY: AMS TECHNIQUE: Axial computed tomography images of the head/brain without intravenous contrast. COMPARISON: CT\SR - CT BRAIN WO CON - 04/10/2019 10:46 AM CDT FINDINGS: BRAIN: New small extra-axial fluid collection along the right frontal lobe. No midline shift or mass-effect. VENTRICLES: No hydrocephalus. ORBITS: The orbits are unremarkable. SINUSES AND MASTOIDS: New opacification of right mastoid air cells, frontal and ethmoid sinuses. SOFT TISSUES: No significant facial or scalp soft tissue swelling evident. No radiopaque foreign body is seen. BONES: Lytic and expansile changes in the right frontal and sphenoid bones. IMPRESSION: New expansile lytic changes in the right frontal and sphenoid bones with new small extra-axial CSF at tenuation collection along the right frontal region. Recommend clinical correlation for possible infection or mass. Findings suggestive of bilateral frontal and ethmoid paranasal sinusitis and right mastoiditis ELECTRONICALLY SIGNED BY: Sariah Hamilton MD Oct 26, 2020 1:54:10 AM BRAND COMMUNICATIONS MANAGER This report is intended for review by the ordering physician only, in accordance of law. If you recei ve this report in error, please call [facility] at [phone]. FINAL REPORT Final interpretation Head CT without contrast: 10/26/2020 COMPARISON: 04/10/2019. HISTORY: Altered mental status. FINDINGS: There is opacification of the bilateral frontal sinuses and the anterior ethmoid air cells on the rig ht. This paranasal sinus opacification is new when compared to the prior study. There is new partial opacification of the mastoid air cells on the right, most prominent inferiorly. There is permeative lytic change involving the calvarium with a permeative lytic process involving th e right frontal bone, best seen on axial image 40, extending inferiorly to involve the sphenoid wing and undersurface of the right middle cranial fossa. Given the patient's history of widespread me tastatic breast cancer, this lytic process is favored to represent osseous metastatic disease over infection. Clinical correlation is required. There is an additional new small lytic lesion within the lateral aspect of the calvarium on the left measuring 9 mm on axial image 37 within the superior aspect of the left frontal bone. There is no intracranial hemorrhage, midline shift, or mass effect. There is a small CSF collection in the right frontal region which could be reactive to the permeative lytic process within the right frontal calvarium. IMPRESSION: 1. Permeative lytic process involving the calvarium, right greater than left, most suspicious for oss eous metastatic disease. Evaluation for underlying intracranial metastatic disease could be best assessed via MRI. 2. There is new partial opacification of the mastoid air cells and paranasal sinuses which may signif y acute inflammatory change/infectious process. Code QA Transcribed Date/Time: 10/26/2020 7:59 AM
--- NOTE | 2020-10-26 07:43 | CT ---
PRELIMINARY REPORT/[facility]/EMERGENCY AFTER HOURS PROCEDURE EXAM: CT Abdomen and Pelvis Without Intravenous Contrast CLINICAL HISTORY: Lactic acidosis, abdo distention TECHNIQUE: Axial computed tomography images of the abdomen and pelvis without intravenous contrast. Coronal and sagittal reformatted images provided. CONTRAST: None. COMPARISON: CTSR - CT ABDOMEN PELVIS W CON - 10/24/2020 10:42 AM DEPARTMENT SECRETARY FINDINGS: LUNG BASES: Partial atelectatic collapse of the right lower lobe. Small right pleural effusion. The visualized le ft lung base is clear. Central line distal tip overlies the cavoatrial junction. The heart is normal size. No pericardial effusion. LIVER: Limited noncontrast visualization of the liver. Multiple hypodense masses are suspected. GALLBLADDER AND BILE DUCTS: Gallbladder surgically absent. PANCREAS: Unremarkable. SPLEEN: Unremarkable. ADRENAL GLANDS: Unremarkable. KIDNEYS, URETERS, AND BLADDER: Unremarkable. No hydronephrosis or nephrolithiasis. No ureteral or bladder calculi. STOMACH AND BOWEL: No bowel obstruction. Gastric distention with ingested contents and gastric wall thickening. Distenti on of the cecum, ascending colon and hepatic flexure containing stool with air fluid level. APPENDIX: No CT evidence for appendicitis. PERITONEUM: Moderate intra-abdominal ascites. No intra-abdominal free air. No intra-abdominal abscess. LYMPH NODES: No lymphadenopathy. REPRODUCTIVE: Likely fibroid within the uterus. VASCULATURE: No aortic aneurysm. ABDOMINAL WALL AND SOFT TISSUES: Postsurgical change of right mastectomy. BONES: Multiple lytic lesions throughout the visualized axial and appendicular skeleton to include near comp lete replacement of the left sacrum and left ischium. Nondisplaced left iliac pathologic fracture is suspected. IMPRESSION: 1. Persistent mild gastric distention with ingested contents and wall thickening. May indicate gastri tis. 2. Dilated cecum and ascending colon containing stool and air-fluid levels. Correlate for constipatio n, localized ileus or focal colitis. 3. Moderate intra-abdominal ascites, unchanged from prior. 4. Right mastectomy, probable liver metastases and bone metastases suggest advanced malignancy. ELECTRONICALLY SIGNED BY: Zelalem Sauceda M.D. Oct 26, 2020 5:00:24 AM DEPARTMENT SECRETARY This report is intended for review by the ordering physician only, in accordance of law. If you recei ve this report in error, please call [facility] at [phone]. FINAL REPORT CT abdomen and pelvis without contrast: I agree with the preliminary report given by Dr. Zelalem Sauceda of [facility]. Transcribed Date/Time: 10/26/2020 7:48 AM
--- NOTE | 2020-10-26 07:53 | RAD ---
EXAM: Single view of the chest HISTORY: Lactic acidosis COMPARISON: 10/24/2020 FINDINGS: Single view of the chest shows a normal sized cardiomediastinal silhouette. The Mediport i s unchanged in position. Stable opacity is seen in the right lung base which likely represents elevation of the hemidiaphragm and an adjacent pleural effusion versus infiltrate. No acute osseous a bnormality. IMPRESSION: Stable exam
[2020-10-26] MEDS: Anastrozole 1 MG TAB PO SCH (08:53)
--- NOTE | 2020-10-26 09:03 | PDOC.HOSPP ---
- Subjective Encounter Date: 10/26/20 Encounter Time: 09:01 Subjective: Ms. Washington was seen today in follow-up of altered mental status in the setting of metastatic breast cancer. She became more confused last night. She is les responsive this morning. The CT scan and CXR findings are noted - Objective Vital Signs & Weight: Vital Signs (12 hours) Temp Pulse Resp BP BP Pulse Ox 10/26/20 07:28 97.6 F 113 H 20 167/87 H 100 10/26/20 04:34 97.9 F 107 H 20 145/96 H 100 10/26/20 02:38 112 H 24 H 158/72 H 98 10/26/20 01:19 111 H 16 133/79 94 L 10/25/20 23:24 97.2 F L 113 H 16 133/85 94 L Weight Admit Weight 190 lb 2 oz Weight 190 lb 2 oz I&O: 10/25/20 10/26/20 10/27/20 06:59 06:59 06:59 Intake Total 2886 1550 Output Total 500 10 Balance 2386 1540 Result Diagrams: 10/26/20 01:56 10/26/20 01:56 Additional Labs: Accuchecks 10/26/20 10/24/20 10/24/20 01:17 11:30 09:39 POC Glucose 161 H 134 H 56 L* Hospitalist ROS - Medication Medications: Active Medications Generic Name Dose Route Start Last Admin Trade Name Freq PRN Reason Stop Dose Admin Anastrozole 1 mg 10/25/20 09:00 10/26/20 08:53 Anastrozole 1 Mg Tab PO Not Given DAILY PATY Dextrose/Sodium Chloride 1,000 mls @ 50 mls/hr 10/24/20 21:30 10/25/20 18:35 D5 0.9% Ns IV Not Given .Q20H PATY Sodium Chloride 1,000 mls @ 100 mls/hr 10/26/20 03:15 10/26/20 03:41 Normal Saline 0.9% IV 1,000 mls .Q10H PATY Administration Vancomycin HCl 750 mg/ Sodium 250 mls @ 250 mls/hr 10/26/20 05:00 10/26/20 04:46 Chloride IVPB 250 mls 0500 PATY Administration Lactulose 20 gm 10/26/20 09:00 10/26/20 08:53 Lactulose 20 Gm/30 Ml Udcup PO Not Given DAILY PATY Ondansetron HCl 4 mg 10/24/20 20:45 10/25/20 18:43 Ondansetron Pf 4 Mg/2 Ml Vial IVP 4 mg Q6H PRN Administration Nausea/Vomiting Phytonadione 10 mg 10/25/20 13:00 10/25/20 13:04 Phytonadione 10 Mg/Ml Amp SC 10/27/20 13:01 10 mg 1300 PATY Administration Hospitalist Exam Vitals: Vital Signs (12 hours) Temp Pulse Resp BP BP Pulse Ox 10/26/20 07:28 97.6 F 113 H 20 167/87 H 100 10/26/20 04:34 97.9 F 107 H 20 145/96 H 100 10/26/20 02:38 112 H 24 H 158/72 H 98 10/26/20 01:19 111 H 16 133/79 94 L 10/25/20 23:24 97.2 F L 113 H 16 133/85 94 L Weight Admit Weight 190 lb 2 oz Weight 190 lb 2 oz General Appearance: ill appearing General - other findings: Lethargic, eyes open but not focusing Heart: RRR, no murmur, no gallops, no rubs, normal peripheral pulses Respiratory: CTAB, no wheezes, no rales, no ronchi, normal chest expansion Gastrointestinal: soft, non-tender, non-distended, normal bowel sounds Extremities: 1+ LE edema Hosp A/P (1) GI bleed Code(s): K92.2 - GASTROINTESTINAL HEMORRHAGE, UNSPECIFIED Status: Acute (2) Hepatic encephalopathy Code(s): K72.90 - HEPATIC FAILURE, UNSPECIFIED WITHOUT COMA Status: Acute (3) Breast cancer Status: Acute (4) Hyponatremia Code(s): E87.1 - HYPO-OSMOLALITY AND HYPONATREMIA Status: Acute - Plan * GI Bleed- Gastroenterology evaluation appreciated- She likely has a Janessa Waldrop tear. She had one episode of bleeding last night * Continue PPI * Transaminitis- due to metastatic disease to the liver, and she could have some underlying cirrhosis * Hepatic encephalopathy- due to the above * Hyponatremia- resolved * Breast Cancer- this is widely metastatic- she has new lesions in the cranium and new evidemce of CFS attenuation- Her decline in mental status is likely the result of advancing metastatic disease. Will notify her sister of the change in condition, and Hospice is best option in my medical opinion at this point.
[2020-10-26] MEDS ORDERED: Lorazepam 2 MG/ML VIAL SLOW IVP PRN (11:31)
[2020-10-26] MEDS ORDERED: Morphine 4 MG/ML VIAL SLOW IVP PRN (11:31)
[2020-10-26] MEDS: Dextrose 5 % And 0.9 % NaCl 1,000 ML IV SCH (13:33)
--- NOTE | 2020-10-26 13:39 | PRG ---
DATE OF SERVICE: 10/26/2020 SUBJECTIVE: Ms. Washington wakes up briefly and falls back asleep when stimulated. OBJECTIVE: LUNGS: Clear to auscultation bilaterally. HEART: Regular rate and rhythm with 2/6 systolic murmur at the apex, right upper sternal border. ABDOMEN: Soft, nontender, and nondistended. Bowel sounds are present. EXTREMITIES: No lower extremity edema. LABORATORY DATA: White blood cell count 4.5, hemoglobin 8.5, and platelets 88. IMPRESSION: 1. Metastatic breast cancer, diffusely throughout the liver, causing liver failure, and diffusely to bones and also to the cranium. She is likely only a candidate for comfort care at this point. 2. Liver failure secondary to the diffuse liver metastatic disease. Encephalopathy and elevated bilirubin and coagulopathy. We will recheck her INR to see how she responded to vitamin K. 3. Altered mental status. This is likely a combination of hepatic encephalopathy, could also be the progressive metastatic disease. 4. Acute renal failure. 5. Anemia and hematemesis on admission without signs of overt bleeding continuing. Her hemoglobin did drop down from 10.3 to 8.5. RECOMMENDATIONS: 1. Hospice care. 2. Proton pump inhibitor. 3. Lactulose if she can safely swallow. Job ID: [id number]
[2020-10-26 14:21] LABS: Band 3 % (5-11); Lymphocytes 6 % (21-51); MDiff Complete? YES; Macrocytosis SLIGHT = 6-15 cells (100X) (0-5/hpf); Mean Corpuscular HGB CONC 33.4 g/dL (32.0-36.0); Mean Corpuscular Hemoglobin 34.5 pg (27.0-31.0); Mean Platelet Volume 10.7 fL (7.4-10.4); Monocytes 3 % (0-10); Neutrophil 85 % (42-75); Nucleated RBC 5 % (0); Platelet Count 62 thou/uL (130-400); Platelet Morphology Comment Appears Decreased; Polychromasia MODERATE = 3-4 cells (100X) (0-2/hpf); RBC Distribution Width 17.6 % (11.5-14.5); Reactive Lymphocytes 3 % (0-10); Red Blood Cell (RBC) Count 2.02 mill/uL (4.20-5.40); Target Cells MODERATE= 6-15 cells (100X) (0-1/hpf); Tear Drops SLIGHT = 2-5 cells (100X) (0-1/hpf); White Blood Cell (WBC) Count 3.9 thou/uL (4.8-10.8)
--- NOTE | 2020-10-26 14:21 | PDOC.MOPN ---
Interval History: Patient encephalopathic and poorly responsive. Family meeting with hospice today - Vital Signs Vital Signs: Vital Signs (12 hours) Temp Pulse Resp BP Pulse Ox 10/26/20 11:01 97.6 F 111 H 20 140/80 97 10/26/20 07:28 97.6 F 113 H 20 167/87 H 100 10/26/20 04:34 97.9 F 107 H 20 145/96 H 100 10/26/20 02:38 112 H 24 H 158/72 H 98 Weight Admit Weight 190 lb 2 oz Weight 190 lb 2 oz - Physical Exam General: Other Lungs: Clear to auscultation Cardiovascular: Regular rate Neurological: Other - Labs Result Diagrams: 10/26/20 01:56 10/26/20 01:56 Lab results: Laboratory Results - last 24 hr 10/26/20 03:10: Urine Color Dark-Yellow, Urine Clarity Turbid A, Urine pH 5.5, Ur Specific [place] 1.026, Urine Protein 30 A, Urine Glucose (UA) Normal, Urine Ketones Negative, Urine Blood Negative, Urine Nitrite Negative, Urine Bilirubin 1+ A, Urine Urobilinogen 2.0 A, Ur Leukocyte Esterase Negative, Urine RBC 0-3, Urine WBC 0-3, Ur Squamous Epith Cells 0-3, Urine Bacteria None Seen, Hyaline Casts 11-20 A, Urine Culture Reflexed No 10/26/20 02:07: Specimen Type ARTERIAL, Puncture Site LRA, Bicarbonate Actual 17.7 L, ABG pH 7.45, ABG pCO2 25.8 L*, ABG pO2 109.5 H, ABG O2 Sat (Measured) 98.1 H, ABG O2 Content 11.8 L, ABG Base Excess -5.3 L, ABG Hematocrit 25.0 L, ABG Hemoglobin 8.5 L, ABG Oxyhemoglobin 97.1, ABG Carboxyhemoglobin 0.7, ABG Methemoglobin 0.30, ABG Deoxyhemoglobin 1.9, Randall Test POSITIVE, A-a O2 Gradient 7.980, Ionized Calcium 1.13, Mode of Support NC, Inspired O2 21, Sodium 138, Potassium 4.09, Chloride 109 H 10/26/20 01:56: Lactic Acid 6.5 H* 10/26/20 01:56: Sodium 138, Potassium 4.2, Chloride 105, Carbon Dioxide 18 L, Anion Gap 19, BUN 61 H, Creatinine 2.26 H, Estimated GFR (MDRD) 27, Glucose 160 H, Calcium 8.8, Magnesium 2.5 10/26/20 01:56: WBC 4.5 L, RBC 2.55 L, Hgb 8.5 L, Hct 26.1 L, MCV 102.0 H, MCH 33.4 H, MCHC 32.7, RDW 17.8 H, Plt Count 88 L, MPV 10.9 H, Neutrophils % (Manual) 89 H, Band Neuts % (Manual) 1 L, Lymphocytes % (Manual) 7 L, Monocytes % (Manual) 3, Lymphocytes # Not Reportable, Plt Morphology Comment Appears Decreased L, Macrocytosis SLIGHT = 6-15 cells, Target Cells MODERATE= 6-15 cells H 10/26/20 01:55: Ammonia 54 10/26/20 01:17: POC Glucose 161 H 10/25/20 08:55: SARS CoV-2 Rapid Source Nasopharyngeal Swab, SARS-CoV-2 RNA (JEAN) Not Detected Status: lab reviewed by me A/P - Problem (1) GI bleed Current Visit: Yes Code(s): K92.2 - GASTROINTESTINAL HEMORRHAGE, UNSPECIFIED Status: Acute (2) Hepatic encephalopathy Current Visit: Yes Code(s): K72.90 - HEPATIC FAILURE, UNSPECIFIED WITHOUT COMA Status: Acute (3) Breast cancer Current Visit: No Status: Acute - Plan Plan: Family has decided on hospice, agree with decision Dr. Hernandez updated.
[2020-10-26 14:54] LABS: ALT (SGPT) 124 U/L (8-55); AST (SGOT) 542 U/L (5-34); Albumin 1.9 g/dL (3.5-5.0); Alkaline Phosphatase 182 U/L (40-110); Anion Gap 15 mmol/L (10-20); BUN (Urea Nitrogen) 48 mg/dL (9.8-20.1); Bilirubin, Total 9.9 mg/dL (0.2-1.2); Calc. Creatinine Clearance 52 mL/min (70-130); Calcium 7.1 mg/dL (7.8-10.44); Carbon Dioxide 18 mmol/L (22-29); Chloride 113 mmol/L (98-107); Globulin 3.7 g/dL (2.4-3.5); Glucose 139 mg/dL (70-105); Potassium 3.5 mmol/L (3.5-5.1); Protein, Total 5.6 g/dL (6.0-8.3); Sodium 142 mmol/L (136-145)
[2020-10-26 16:42] VITALS: BP 147/73; TEMP 97.3
[2020-10-26] MEDS: Phytonadione 10 MG/ML AMP SC SCH (17:19)
--- NOTE | 2020-10-26 18:53 | PDOC.DS.DS ---
Provider Date of Admission: 10/24/20 12:05 Date of Discharge: 10/26/20 Admitting Provider: Nadia Pineda MD Consultations: Oncology Primary Care Physician: [facility] Course Hospital Course: Ms. Washington is a pleasant 55 year old female who was admitted with altered mental status. She was found to have hepatic encephalopathy. This was likely due to massive metastatic disease to the liver. She also had a GI bleed as well. She was evaluated by Gastroenterology, and it was felt the the GI bleed was likely the result of a Janessa Waldrop tear. Unfortunately she decompensated during the night CT scan showed advancing metastatic disease. She remained obtunded, and a Hospice evaluation was placed. She was transferred to inpatient Hospice on 10/26/2020 Pertinent Studies: CT scan of abdomen and pelvis CT scan of the brain Resuscitation Status: 10/26/20 14:29 Resuscitation Status Routine Co-Sign Provider: Resuscitation Status: DNAR: NO Resuscitation Discussed with: sister and POA, Suha Castillo Additional comments: Dr. Villalpando informed Lab Results: 10/26/20 13:39 10/26/20 13:39 Abnormal Lab Results - Last 48 hrs 10/24/20 20:59: Lactic Acid 4.9 H* 10/24/20 21:43: Ammonia 89 H 10/25/20 04:13: Lactic Acid 4.1 H* 10/25/20 04:13: Carbon Dioxide 21 L, BUN 45 H, Creatinine 2.00 H 10/25/20 04:13: RBC 2.98 L, Hgb 10.3 L, Hct 30.6 L, MCV 103.0 H, MCH 34.5 H, RDW 17.2 H, Plt Count 89 L, MPV 10.9 H 10/25/20 07:20: PT 27.0 H, APTT 40.5 H 10/26/20 01:56: WBC 4.5 L, RBC 2.55 L, Hgb 8.5 L, Hct 26.1 L, MCV 102.0 H, MCH 33.4 H, RDW 17.8 H, Plt Count 88 L, MPV 10.9 H, Neutrophils % (Manual) 89 H, Band Neuts % (Manual) 1 L, Lymphocytes % (Manual) 7 L, Plt Morphology Comment Appears Decreased L, Target Cells MODERATE= 6-15 cells H 10/26/20 01:56: Carbon Dioxide 18 L, BUN 61 H, Creatinine 2.26 H 10/26/20 01:56: Lactic Acid 6.5 H* 10/26/20 02:07: Bicarbonate Actual 17.7 L, ABG pCO2 25.8 L*, ABG pO2 109.5 H, ABG O2 Sat (Measured) 98.1 H, ABG O2 Content 11.8 L, ABG Base Excess -5.3 L, ABG Hematocrit 25.0 L, ABG Hemoglobin 8.5 L, Chloride 109 H 10/26/20 03:10: Urine Clarity Turbid A, Urine Protein 30 A, Urine Bilirubin 1+ A, Urine Urobilinogen 2.0 A, Hyaline Casts 11-20 A 10/26/20 13:39: Chloride 113 H, Carbon Dioxide 18 L, BUN 48 H, Creatinine 1.65 H, Calcium 7.1 L, Total Bilirubin 9.9 H, AST 542 H, ALT 124 H, Alkaline Phosphatase 182 H, Serum Total Protein 5.6 L, Albumin 1.9 L, Globulin 3.7 H, Albumin/Globulin Ratio 0.5 L 10/26/20 13:39: WBC 3.9 L, RBC 2.02 L, Hgb 7.0 L, Hct 20.9 L, MCV 103.0 H, MCH 34.5 H, RDW 17.6 H, Plt Count 62 L, MPV 10.7 H, Neutrophils % (Manual) 85 H, Band Neuts % (Manual) 3 L, Lymphocytes % (Manual) 6 L, Nucleated RBCs # (Man) 5 H, Plt Morphology Comment Appears Decreased L, Polychromasia MODERATE = 3-4 cells H, Target Cells MODERATE= 6-15 cells H Microbiology - Entire Visit 10/24/20 08:55 Venous blood - Left Hand Blood Culture - Preliminary NO GROWTH AT 48 HOURS 10/24/20 08:55 Venous blood - Right Hand Blood Culture - Preliminary NO GROWTH AT 48 HOURS 10/24/20 12:43 Urine Straight Catheter Urine Culture - Final NO GROWTH AT 48 HOURS Vitals: Vital Signs (12 hours) Temp Pulse Resp BP Pulse Ox 10/26/20 16:41 97.3 F L 109 H 20 147/73 H 95 10/26/20 11:01 97.6 F 111 H 20 140/80 97 10/26/20 07:28 97.6 F 113 H 20 167/87 H 100 Weight Admit Weight 190 lb 2 oz Weight 190 lb 2 oz Physical Exam: The patient was seen and examined on the day of discharge. Problem (1) GI bleed Code(s): K92.2 - GASTROINTESTINAL HEMORRHAGE, UNSPECIFIED Status: Acute (2) Hepatic encephalopathy Code(s): K72.90 - HEPATIC FAILURE, UNSPECIFIED WITHOUT COMA Status: Acute (3) Breast cancer Status: Acute (4) Hyponatremia Code(s): E87.1 - HYPO-OSMOLALITY AND HYPONATREMIA Status: Acute Plan Home Medications: Medication Instructions Recorded Confirmed Type cloNIDine [Catapres] 0.2 mg PO HS 12/13/18 10/24/20 History hydrALAZINE HCl 100 mg PO TID 12/13/18 10/24/20 History Amitriptyline HCl 50 mg PO HS 02/25/20 10/24/20 History Anastrozole 1 mg PO DAILY 02/25/20 10/24/20 History Sennosides/Docusate Sodium 2 tab PO BID PRN #60 tab 02/28/20 10/24/20 Rx [Senokot S] Acetaminophen [Tylenol] 650 mg PO Q6HR PRN 10/24/20 10/24/20 History Cetirizine HCl [Zyrtec] 10 mg PO DAILY 10/24/20 10/24/20 History Cholecalciferol (Vitamin D3) 5,000 unit PO DAILY 10/24/20 10/24/20 History [Vitamin D3] Losartan Potassium 50 mg PO DAILY 10/24/20 10/24/20 History Ondansetron [Zofran ODT] 8 mg PO Q8HR PRN 10/24/20 10/24/20 History tiZANidine HCl [Tizanidine HCl] 4 mg PO TID PRN 10/24/20 10/24/20 History traMADol HCl [Tramadol HCl] 25 mg PO TID PRN 10/24/20 10/24/20 History Allergies: No Known Allergies Allergy (Verified 10/24/20 16:49) Referrals: [facility] [Primary Care Provider] - Disposition: [facility] Quality CORE MEASURES:: N/A
== END 2020-10-26 17:37 | disposition hospice, inpatient (51) | DRG 368 ==
LOC: ERS 07:46 → ONC 12:05
PROVIDERS: ADMIT Internal Medicine; ATTEND Internal Medicine
DX: K22.6 Gastro-esophageal laceration-hemorrhage syndrome (principal); K72.00 Acute and subacute hepatic failure without coma; C79.00 Secondary malignant neoplasm of unspecified kidney and renal pelvis; Z66 Do not resuscitate; Z51.5 Encounter for palliative care; Z20.822 Contact with and (suspected) exposure to COVID-19; R18.8 Other ascites; C79.51 Secondary malignant neoplasm of bone; E87.1 Hypo-osmolality and hyponatremia; N17.9 Acute kidney failure, unspecified; E87.2 Acidosis; I10 Essential (primary) hypertension; F41.9 Anxiety disorder, unspecified; F17.210 Nicotine dependence, cigarettes, uncomplicated; G62.9 Polyneuropathy, unspecified; R74.01 Elevation of levels of liver transaminase levels; E16.2 Hypoglycemia, unspecified; D53.9 Nutritional anemia, unspecified; Z90.49 Acquired absence of other specified parts of digestive tract; Z85.3 Personal history of malignant neoplasm of breast; Z90.11 Acquired absence of right breast and nipple; Z98.51 Tubal ligation status; Z79.899 Other long term (current) drug therapy; Z80.2 Family history of malignant neoplasm of other respiratory and intrathoracic organs; Z79.811 Long term (current) use of aromatase inhibitors; Z17.0 Estrogen receptor positive status [ER+]
CPT/HCPCS: 36415; 36416; 36600; 51701; 70450; 71045; 74176; 74177; 76705; 80048; 80053; 81001; 81003; 81015; 82140; 82805; 83605; 83690; 83735; 84484; 85025; 85027; 85610; 85730; 87040; 87086; 87635; 93005; 96365; 96366; 96367; 96375; C9113; J2060; J2270; J2405; J2543; J2550; J3370; J3430; J3490; J7050; Q9967; U0003; U0005

== ENCOUNTER 2020-10-26 17:45 | Inpatient (IN) | payer OTHER ==
[2020-10-26] MEDS ORDERED: Morphine 4 MG/ML VIAL SLOW IVP PRN (17:56)
[2020-10-26] MEDS ORDERED: Acetaminophen 650 MG Suppository PR PRN (17:57)
[2020-10-26] MEDS ORDERED: Ondansetron PF 4 MG/2 ML Vial IVP PRN (17:57)
[2020-10-26] MEDS ORDERED: Lorazepam 2 MG/ML VIAL SLOW IVP PRN (17:57)
[2020-10-26] MEDS ORDERED: Scopolamine 1.5 mg/72 hour Patch TOP SCH (18:00)
[2020-10-26] MEDS: Lorazepam 2 MG/ML VIAL SLOW IVP SCH (19:16)
[2020-10-26] MEDS ORDERED: Morphine 4 MG/ML VIAL SLOW IVP SCH (22:00)
[2020-10-26 22:52] VITALS: BP 137/73
[2020-10-27] MEDS: Lorazepam 2 MG/ML VIAL SLOW IVP SCH (00:19)
== END 2020-10-27 02:19 | disposition expired | DRG 951 ==
LOC: ONC 17:45
PROVIDERS: ADMIT Family Medicine; ATTEND Family Medicine
DX: Z51.5 Encounter for palliative care (principal); K72.00 Acute and subacute hepatic failure without coma; K92.0 Hematemesis; C78.7 Secondary malignant neoplasm of liver and intrahepatic bile duct; R18.8 Other ascites; C79.51 Secondary malignant neoplasm of bone; E87.1 Hypo-osmolality and hyponatremia; N17.9 Acute kidney failure, unspecified; R74.01 Elevation of levels of liver transaminase levels; D53.9 Nutritional anemia, unspecified; I10 Essential (primary) hypertension; E16.2 Hypoglycemia, unspecified; G62.9 Polyneuropathy, unspecified; Z85.3 Personal history of malignant neoplasm of breast; Z90.49 Acquired absence of other specified parts of digestive tract; Z98.51 Tubal ligation status
CPT/HCPCS: J2060; J2270; J2405